=== PATIENT | female | born 2000 | race Caucasian/White ===

== ENCOUNTER 2022-01-11 08:55 | Outpatient (REF) | payer OTHER, SELFPAY ==
[2022-01-11 11:43] LABS: MANUAL DIFF FLAG NO
[2022-01-11 11:53] LABS: Basophils Absolute Auto 0.1 X10*3/uL (0.0-0.2); Basophils Percent Auto 0.7 % (0-2); Eosinophils Absolute Auto 0.2 X10*3/uL (0.0-0.4); Eosinophils Percent Auto 3.3 % (0-4); Hematocrit 43.5 % (37.0-47.0); Hemoglobin 14.2 g/dl (12.0-16.0); Imm Gran Abs Auto 0.02 X10*3/uL (0.00-0.03); Imm Gran Pct Auto 0.3 % (0.0-0.4); Lymphocytes Absolute Auto 1.2 X10*3/uL (1.2-4.9); Lymphocytes Percent Auto 17.5 % (20-40); Mean Corpuscular HGB Conc 32.6 g/dl (31.0-35.0); Mean Corpuscular Hemoglobin 28.6 pg (27.0-33.0); Mean Corpuscular Volume 87.5 fL (80.0-98.0); Mean Platelet Volume 10.3 fL (9.4-12.3); Monocytes Absolute Auto 0.6 X10*3/uL (0.1-1.2); Monocytes Percent Auto 7.8 % (2-11); Neutrophils Absolute Auto 4.9 x10*3/uL (2.0-8.3); Neutrophils Percent Auto 70.4 % (45-73); Platelet Count 275 X10*3/uL (160-400); Red Blood Count 4.97 X10*6/uL (4.20-5.50); Red Cell Distribution Width 12.7 % (11.0-16.0)
[2022-01-11 12:14] LABS: Alanine Aminotransferase 57 U/L (0-31); Anion Gap 13 (12-20); Aspartate Amino Transferase 34 U/L (5-31); Blood Urea Nitrogen 8 mg/dL (9-16); Calcium 9.7 mg/dL (8.4-10.2); Carbon Dioxide 25 mmol/L (22-29); Chloride 104 mmol/L (96-108); Cholesterol 158 mg/dL; Estimated Glomerular Filt Rate > 60; Glucose Fasting 108 mg/dL (60-99); HDL Cholesterol 37 mg/dL; Iron 115 mcg/dL (30-160); LDL Cholesterol Calculated 93 mg/dl; Percent Iron Saturation 32 % (15-50); Potassium 4.4 mmol/L (3.3-5.1); Sodium 138 mmol/L (135-145); Total Iron Binding Capacity 363 mcg/dL (228-428); Triglycerides 140 mg/dL; Unsaturated Iron Binding 248 ug/dL
[2022-01-11 12:23] LABS: TSH reflex Free T4 1.75 uIU/mL (0.32-4.0); Vitamin D 25-OH Total 21.9 ng/mL (>30)
== END 2022-01-11 08:56 | disposition home or self-care (01) ==
LOC: HO.HMGCLDS 08:55
PROVIDERS: PCP Internal Medicine; Visit Provider Internal Medicine
DX: E66.01 Morbid (severe) obesity due to excess calories (principal); D50.0 Iron deficiency anemia secondary to blood loss (chronic); Z87.42 Personal history of other diseases of the female genital tract; Z68.41 Body mass index [BMI] 40.0-44.9, adult
CPT/HCPCS: 36415; 80048; 80061; 82306; 83540; 84443; 84450; 84460; 85025

== ENCOUNTER → 2022-10-04 15:23 | Outpatient (BNVA) | payer OTHER, SELFPAY | PROVIDERS: PCP Internal Medicine; Visit Provider Physician Assistant Surgical | DX: Z13.89 Encounter for screening for other disorder (principal) ==

== ENCOUNTER → 2022-10-11 08:05 | Outpatient (BNVA) | payer OTHER, SELFPAY | PROVIDERS: PCP Internal Medicine; Visit Provider Surgery | DX: Z13.89 Encounter for screening for other disorder (principal) ==

== ENCOUNTER 2022-10-14 09:40 | Outpatient (REF) | payer OTHER, SELFPAY ==
--- NOTE | ~2022-10-14 | XR_ITS ---
EXAMINATION: XR CHEST CLINICAL INFORMATION: 22-year-old female patient with morbid obesity. COMPARISON: None TECHNIQUE: PA and lateral erect views of the chest. FINDINGS: The cardiovascular, mediastinal, and hilar structures are normal. The lungs are symmetrically aerated and clear showing no evidence of acute pulmonary parenchymal or pleural disease. XR/XR chest 2V IMPRESSION: No acute cardiopulmonary disease.
[2022-10-14 09:55] LABS: MANUAL DIFF FLAG NO
[2022-10-14 10:21] LABS: Basophils Absolute Auto 0.1 X10*3/uL (0.0-0.2); Basophils Percent Auto 1.2 % (0-2); Eosinophils Absolute Auto 0.2 X10*3/uL (0.0-0.4); Eosinophils Percent Auto 2.6 % (0-4); Hematocrit 44.9 % (37.0-47.0); Hemoglobin 14.5 g/dl (12.0-16.0); Imm Gran Abs Auto 0.03 X10*3/uL (0.00-0.03); Imm Gran Pct Auto 0.5 % (0.0-0.4); Lymphocytes Absolute Auto 1.8 X10*3/uL (1.2-4.9); Lymphocytes Percent Auto 26.4 % (20-40); Mean Corpuscular HGB Conc 32.3 g/dl (31.0-35.0); Mean Corpuscular Hemoglobin 27.8 pg (27.0-33.0); Mean Platelet Volume 9.9 fL (9.4-12.3); Monocytes Absolute Auto 0.4 X10*3/uL (0.1-1.2); Neutrophils Absolute Auto 4.2 x10*3/uL (2.0-8.3); Neutrophils Percent Auto 63.3 % (45-73); Platelet Count 289 X10*3/uL (160-400); Red Blood Count 5.22 X10*6/uL (4.20-5.50); Red Cell Distribution Width 12.6 % (11.0-16.0); White Blood Count 6.7 X10*3/uL (4.8-10.8)
[2022-10-14 10:26] LABS: Estimated Average Glucose 103 mg/dL; Hemoglobin A1c % 5.2 %
[2022-10-14 10:46] LABS: Alanine Aminotransferase 28 U/L (0-31); Albumin Level 4.4 g/dL (3.5-5.0); Alkaline Phosphatase 81 U/L (39-117); Anion Gap 13 (12-20); Aspartate Amino Transferase 22 U/L (5-31); Bilirubin Total 0.7 mg/dL (0.0-1.0); Blood Urea Nitrogen 13 mg/dL (9-16); C Reactive Protein 0.66 mg/dL (< or = 0.50); Calcium 9.7 mg/dL (8.4-10.2); Carbon Dioxide 27 mmol/L (22-29); Chloride 103 mmol/L (96-108); Cholesterol 185 mg/dL; Estimated Glomerular Filt Rate > 60; Glucose Random 88 mg/dL (60-115); HDL Cholesterol 38 mg/dL; Iron 139 mcg/dL (30-160); LDL Cholesterol Calculated 127 mg/dl; Percent Iron Saturation 41 % (15-50); Potassium 4.4 mmol/L (3.3-5.1); Sodium 139 mmol/L (135-145); Total Iron Binding Capacity 340 mcg/dL (228-428); Total Protein 7.7 g/dL (6.5-8.0); Triglycerides 100 mg/dL; Unsaturated Iron Binding 201 ug/dL
[2022-10-14 11:19] LABS: Ferritin 72 ng/mL (10-122); Insulin 27 uU/mL (2-29); TSH reflex Free T4 1.68 uIU/mL (0.32-4.0); Vitamin B12 428 pg/mL (200-900); Vitamin D 25-OH Total 23.1 ng/mL (>30)
[2022-10-18 00:43] LABS: Zinc 81 mcg/dL (60-130)
[2022-10-19 05:14] LABS: Vitamin A 43 mcg/dL (38-98)
[2022-10-19 13:13] LABS: Calcium (PTHI) 9.7 mg/dL (8.6-10.2); PTHI 55 pg/mL (16-77)
[2022-10-21 05:18] LABS: Vitamin B1 7 nmol/L (8-30)
== END 2022-10-14 09:41 | disposition home or self-care (01) ==
LOC: HO.XRAY 09:40
PROVIDERS: PCP Nurse Practitioner Family; Visit Provider Surgery
DX: E28.2 Polycystic ovarian syndrome (principal); E66.01 Morbid (severe) obesity due to excess calories; K21.9 Gastro-esophageal reflux disease without esophagitis
CPT/HCPCS: 36415; 71046; 80053; 80061; 82306; 82607; 82728; 82746; 83036; 83525; 83540; 83970; 84425; 84443; 84590; 84630; 85025; 86140

== ENCOUNTER → 2022-10-16 07:09 | Outpatient (REF) | payer OTHER, SELFPAY ==
--- NOTE | 2022-10-16 07:16 | ECG_ITS ---
Test Reason : e66.01 Blood Pressure : / mmHG Vent. Rate : 063 BPM Atrial Rate : 063 BPM P-R Int : 164 ms QRS Dur : 100 ms QT Int : 400 ms P-R-T Axes : 009 045 016 degrees QTc Int : 409 ms Normal sinus rhythm Normal ECG No previous ECGs available Referred By: Morteza Zarate Electronically Signed By:Yuniel John
== END ==
LOC: HO.CARD 07:09
PROVIDERS: PCP Nurse Practitioner Family; Visit Provider Surgery
DX: K21.9 Gastro-esophageal reflux disease without esophagitis (principal); E28.2 Polycystic ovarian syndrome; E66.01 Morbid (severe) obesity due to excess calories
CPT/HCPCS: 93005

== ENCOUNTER 2022-10-27 07:54 | Outpatient (REF) | payer OTHER, SELFPAY ==
[2022-10-30 13:03] LABS: H Pylori Breath Test Negative (Negative)
== END 2022-10-27 07:55 | disposition home or self-care (01) ==
LOC: HO.LNP 07:54
PROVIDERS: Surgery; PCP Nurse Practitioner Family; Referring Provider Nurse Practitioner Family; Visit Provider Physician Assistant Surgical
DX: E66.01 Morbid (severe) obesity due to excess calories (principal); E28.2 Polycystic ovarian syndrome; K21.9 Gastro-esophageal reflux disease without esophagitis
CPT/HCPCS: 83013; 99211

== ENCOUNTER → 2022-11-02 13:00 | Outpatient (BNVA) | payer OTHER, SELFPAY | PROVIDERS: PCP Nurse Practitioner Family; Visit Provider Counselor Mental Health ==

== ENCOUNTER → 2022-11-03 13:12 | Outpatient (BNVA) | payer OTHER, SELFPAY | PROVIDERS: PCP Nurse Practitioner Family; Visit Provider Dietitian, Registered | DX: E66.9 Obesity, unspecified (principal); Z68.38 Body mass index [BMI] 38.0-38.9, adult | CPT/HCPCS: 97802 ==

== ENCOUNTER → 2022-11-06 08:06 | Outpatient (BNVA) | payer OTHER, SELFPAY | PROVIDERS: PCP Internal Medicine; Visit Provider Surgery ==

== ENCOUNTER → 2022-11-15 10:54 | Outpatient (BNVA) | payer OTHER, SELFPAY | PROVIDERS: PCP Internal Medicine; Visit Provider Surgery ==

== ENCOUNTER → 2022-11-17 12:45 | Outpatient (BNVA) | payer OTHER, SELFPAY | PROVIDERS: PCP Nurse Practitioner Family; Visit Provider Surgery ==

== ENCOUNTER 2022-11-21 08:59 | Outpatient (REF) | payer OTHER, SELFPAY ==
--- NOTE | ~2022-11-21 | US_ITS ---
EXAMINATION: US COMPLETE ABDOMEN WITH LIVER ELASTOGRAPHY CLINICAL INFORMATION: Obesity COMPARISON: None available. TECHNIQUE: Real-time imaging of the abdominal viscera. Noninvasive ultrasound liver fibrosis assessment is performed using Ritchie ElastPQ point quantification shear wave elastography (2D-SWE) with a C5-2 MHz transducer. Multiple elastography samples are obtained. FINDINGS: PANCREAS: Not well visualized due to bowel gas. ABDOMINAL AORTA: The proximal, middle, and distal aortic segments are normal in caliber. INFERIOR VENA CAVA: Visualized portions are normal. LIVER: Liver echotexture is increased. Probably represents fatty infiltration. There is a hypoechoic area adjacent to the gallbladder, characteristic location of focal fatty sparing. The liver is normal in size and contour.. No focal lesion or intrahepatic biliary duct dilatation. The right lobe measures 17 cm in length. The left lobe measures 12 cm in length. Portal flow is normal/hepatopedal Shear wave liver elastography median stiffness is 1.6 m/s (reference: normal median stiffness is 1.3 m/s or less). IQR/median stiffness to assess sampling precision is 0.06 (reference: good quality data set is IQR/median stiffness of 0.15 or less). GALLBLADDER: The 2 small gallbladder wall polyps largest measuring 8 x 5 x 8 mm. No gallstones. COMMON BILE DUCT: Normal in caliber measuring 0.3 cm in diameter. RIGHT KIDNEY: Normal. No hydronephrosis. No renal calculi or focal parenchymal lesions. The kidney measures 12 cm in maximum dimension. LEFT KIDNEY: Normal. No hydronephrosis. No renal calculi or focal parenchymal lesions. The kidney measures 12 cm in maximum dimension. SPLEEN: Normal. The spleen measures 12 cm in maximum dimension. FREE FLUID: None. US/US abdomen comp w elastography IMPRESSION: 1. Impression: Echogenic liver suggestive of fatty infiltration. Gallbladder wall polyps, largest measuring 8 x 5 x 8 mm. Six-month ultrasound follow-up recommended. 2. Liver elastography: Adequate liver sampling. In the absence of other known clinical signs, rules out compensated advanced chronic liver disease. REFERENCE: Society of Radiologists in Ultrasound Liver Stiffness Thresholds (2020): LIVER STIFFNESS THRESHOLDS: *Liver Stiffness equal or less than 1.3 m/s: High probability of being normal. *Liver Stiffness less than 1.7 m/s: In the absence of other known clinical signs, rules out compensated advanced chronic liver disease. *Liver Stiffness 1.7-2.1 m/s: Suggestive of compensated advanced chronic liver disease but need further test for confirmation. *Liver Stiffness over 2.1 m/s: Rules in compensated advanced chronic liver disease. *Liver Stiffness over 2.4 m/s: Suggestive of clinically significant portal hypertension. QUALITY OF DATA SET: *IQR/Median value equal or less than 0.15 implies a quality data set. *IQR/Median value over 0.15 implies a poor quality data set. SIGNIFICANT CHANGE FROM PRIOR EXAM: Significant change if liver stiffness measurement is 10% or greater from prior exam. OTHER CONSIDERATIONS: The stage of liver fibrosis may be overestimated in the setting of acute hepatitis, liver inflammation, elevated liver function tests, hepatic vascular congestion, obstructive cholestasis, non-fasting state, and infiltrative diseases such as amyloidosis and lymphoma. In some patients with NAFLD, the liver stiffness thresholds for compensated advanced chronic liver disease may be lower. In causes other than viral hepatitis and NAFLD, liver stiffness thresholds are not well established.
--- NOTE | ~2022-11-21 | FL_ITS ---
EXAMINATION: XR FLUOROSCOPY UPPER GI WITH AIR CLINICAL INFORMATION: Morbid/severe obesity due to excess calories. COMPARISON: None available. TECHNIQUE: Technique routine upper GI air-contrast study in upright and lying position. FINDINGS: Following oral administration of thick barium and effervescent granules in upright view there is normal propagation bolus from the oral cavity through the pharynx, esophagus into stomach without any evidence of obstruction, narrowing or stricture. On placing patient supine and prone lying the course, caliber and peristalsis of stomach, duodenal bulb and the sweep is normal. The mucosal pattern of the stomach and the duodenal bulb and the sweep is normal. There is a large gastroesophageal the sellar reflux without hiatal hernia. FLUOROSCOPY TIME: 1.3 minutes DOSE AREA PRODUCT: 42.136 uGy-m2 (microgray-meter squared) FL/FL upper GI w air IMPRESSION: Large gastroesophageal reflux without hiatal hernia. Rest of the upper GI exam is unremarkable.
== END 2022-11-21 09:00 | disposition home or self-care (01) ==
LOC: HO.US 08:59
PROVIDERS: PCP Nurse Practitioner Family; Visit Provider Surgery
DX: Z01.818 Encounter for other preprocedural examination (principal); E66.01 Morbid (severe) obesity due to excess calories; K21.9 Gastro-esophageal reflux disease without esophagitis; E28.2 Polycystic ovarian syndrome
CPT/HCPCS: 74246; 76705; 76981

== ENCOUNTER 2022-11-23 06:07 | Inpatient (IN) | payer OTHER, SELFPAY ==
[2022-11-16 11:20] VITALS: BMI 37.4
[2022-11-17 10:28] LABS: MANUAL DIFF FLAG NO
[2022-11-17 12:01] LABS: Prothrombin Time 11.3 SEC (10.0-13.1)
[2022-11-17 12:04] LABS: Basophils Absolute Auto 0.1 X10*3/uL (0.0-0.2); Basophils Percent Auto 1.2 % (0-2); Eosinophils Absolute Auto 0.2 X10*3/uL (0.0-0.4); Hematocrit 40.5 % (37.0-47.0); Hemoglobin 13.4 g/dl (12.0-16.0); Imm Gran Abs Auto 0.01 X10*3/uL (0.00-0.03); Imm Gran Pct Auto 0.2 % (0.0-0.4); Lymphocytes Absolute Auto 1.6 X10*3/uL (1.2-4.9); Lymphocytes Percent Auto 27.4 % (20-40); Mean Corpuscular HGB Conc 33.1 g/dl (31.0-35.0); Mean Corpuscular Hemoglobin 28.7 pg (27.0-33.0); Mean Corpuscular Volume 86.7 fL (80.0-98.0); Mean Platelet Volume 10.4 fL (9.4-12.3); Monocytes Absolute Auto 0.4 X10*3/uL (0.1-1.2); Monocytes Percent Auto 6.9 % (2-11); Neutrophils Absolute Auto 3.5 x10*3/uL (2.0-8.3); Neutrophils Percent Auto 61.3 % (45-73); Partial Thromboplastin Time 28.8 SEC (26.0-36.4); Platelet Count 271 X10*3/uL (160-400); Red Blood Count 4.67 X10*6/uL (4.20-5.50); Red Cell Distribution Width 13.2 % (11.0-16.0); White Blood Count 5.8 X10*3/uL (4.8-10.8)
[2022-11-17 12:30] LABS: Estimated Average Glucose 94 mg/dL; Hemoglobin A1c % 4.9 %
[2022-11-17 14:02] LABS: Alanine Aminotransferase 45 U/L (0-31); Albumin Level 4.3 g/dL (3.5-5.0); Alkaline Phosphatase 62 U/L (39-117); Anion Gap 11 (12-20); Aspartate Amino Transferase 27 U/L (5-31); Bilirubin Total 0.5 mg/dL (0.0-1.0); Blood Urea Nitrogen 10 mg/dL (9-16); C Reactive Protein 0.24 mg/dL (< or = 0.50); Calcium 9.2 mg/dL (8.4-10.2); Carbon Dioxide 24 mmol/L (22-29); Chloride 109 mmol/L (96-108); Cholesterol 140 mg/dL; Creatinine Clr Calc Pharmacy 161.8; Estimated Glomerular Filt Rate > 60; Glucose Random 89 mg/dL (60-115); HDL Cholesterol 36 mg/dL; LDL Cholesterol Calculated 90 mg/dl; Potassium 4.1 mmol/L (3.3-5.1); Sodium 140 mmol/L (135-145); Total Protein 7.1 g/dL (6.5-8.0); Triglycerides 73 mg/dL
[2022-11-17 14:12] LABS: TSH reflex Free T4 1.42 uIU/mL (0.32-4.0)
[2022-11-17 14:51] LABS: Insulin 25 uU/mL (2-29)
--- NOTE | 2022-11-19 23:03 | P.HPSUR_ITS ---
Pre-Procedural Eval Section A Date of Service: 11/19/22 The patient is an INPATIENT: Yes The History & Physical has been completed within 30 days and I have reviewed it.: Yes Section B Chief Complaint: Obesity, unspecified Relevant Family History (Specify if Yes): No Relevant Social History: None Present Medications: None Medical History: No relevant PMH History of Previous Operations: No relevant previous surgery Allergies: Allergies Allergy/AdvReac Type Severity Reaction Status Date / Time No Known Allergies Allergy Verified 11/15/22 11:47 [No Known Allergies*] Review of Systems Sugical H&P ROS: Negative: Constitution, Cardiovascular, Respiratory, Neurological, Psychiatric, Hem-Onc, Allergic/Immunologic, Gastrointestinal, Genitourinary, Musculoskeletal, Integumentary, Endocrine and Eyes/Ears/ Nose/Throat Exam Surgical H&P Exam: Normal: HEENT, Normal: Heart, Normal: Lungs, Normal: Extremities, Normal: Abdomen, Normal: Skin and Normal: Neurological Plan Diagnosis/Plan: Unchanged I have reviewed the history and physical and performed a pertinent physical examination on my patient. No changes have occurred unless specified. Time Spent With Patient Time: Total time managing care of this patient today ____ minutes.
--- NOTE | 2022-11-22 10:00 | P.CONAN_ITS ---
HPI - Anesthesia Eval Consult details Narrative: 22yo F for Gastrectomy SleeveEGD,possible diaphragmatic hernia,possible ventral hernia,possible open PMFSH Active Problems Active Problems: All Active Problems (Updated 11/15/22 @ 11:44 by Morteza Zarate MD) BMI 37.0-37.9, adult (Acute) BMI 38.0-38.9,adult (Acute) Obesity (Acute) Vitamin B1 deficiency (Acute) Vitamin B12 deficiency (Acute) Nephrolithiasis (Acute) PCOS (polycystic ovarian syndrome) (Acute) GERD (gastroesophageal reflux disease) (Acute) Morbid obesity (Acute) Elevated liver enzymes (Acute) Impaired fasting glucose (Acute) Vitamin D deficiency (Acute) Anxiety and depression (Acute) Morbid obesity with BMI of 40.0-44.9, adult (Acute) History of irregular menstrual bleeding (Acute) Past Medical History Medical History Anxiety and depression BMI 37.0-37.9, adult Folliculitis Fracture of distal end of right fibula GERD (gastroesophageal reflux disease) History of irregular menstrual bleeding Lumbago without sciatica Morbid obesity Morbid obesity with BMI of 40.0-44.9, adult Nephrolithiasis PCOS (polycystic ovarian syndrome) Family History Family History Mother Asthma Diabetes mellitus Maternal Grandmother Diabetes mellitus Pancreatic cancer Father No problems noted. Sister PCOS (polycystic ovarian syndrome) Sister No problems noted. Paternal Uncle No problems noted. Maternal Uncle Mental health disorder Surgical History Surgical History History of root canal procedure Hx of wisdom tooth extraction S/P ORIF (open reduction internal fixation) fracture Social History Social History Household Members: Family Household Members Other:: Parents Housing: Apartment Are you a primary associate director career services to a significant other at home: No Do you presently have visiting nurse or other home services: No Alcohol intake: current Alcohol intake frequency: holidays/special occasions only Patient Tobacco Use Status: Never used Tobacco e-Cigarette/Vaping Use: Never Used service: No Current occupational status: employed Cognitive needs: No Hearing needs: No Vision needs: No Meds Allergies Allergy/AdvReac Type Severity Reaction Status Date / Time No Known Allergies Allergy Verified 11/28/22 13:44 [No Known Allergies*] Exam Exam Date and Time: November 22, 2022 1000 Height,Weight and Vital Signs: Height 5 ft 7 in Weight 108.409 kg Pertinent Lab Results Pertinent Lab Results: Laboratory Tests 11/17/22 11/17/22 11/17/22 10:25 10:27 10:27 WBC 5.8 RBC 4.67 Hgb 13.4 Hct 40.5 MCV 86.7 MCH 28.7 MCHC 33.1 RDW 13.2 Plt Count 271 MPV 10.4 Immature Gran % (Auto) 0.2 Neut % (Auto) 61.3 Lymph % (Auto) 27.4 [place] % (Auto) 6.9 Eos % (Auto) 3.0 Baso % (Auto) 1.2 Lymph # (Auto) 1.6 [place] # (Auto) 0.4 Eos # (Auto) 0.2 Baso # (Auto) 0.1 Abs Immat Gran (auto) 0.01 Absolute Neuts (auto) 3.5 Absolute Nucleated RBC 0.000 Nucleated RBC % (auto) 0.0 PT 11.3 INR 1.0 APTT 28.8 Sodium Potassium Chloride Carbon Dioxide Anion Gap BUN Creatinine Estim Creat Clear Calc Estimated GFR Random Glucose Estimat Average Glucose Hemoglobin A1c % Insulin Level Calcium Total Bilirubin AST ALT Alkaline Phosphatase C-Reactive Protein Total Protein Albumin Triglycerides Cholesterol LDL Cholesterol, Calc HDL Cholesterol TSH Blood Type A Negative Antibody Screen NEGATIVE 11/17/22 11/17/22 10:27 10:27 WBC RBC Hgb Hct MCV MCH MCHC RDW Plt Count MPV Immature Gran % (Auto) Neut % (Auto) Lymph % (Auto) [place] % (Auto) Eos % (Auto) Baso % (Auto) Lymph # (Auto) [place] # (Auto) Eos # (Auto) Baso # (Auto) Abs Immat Gran (auto) Absolute Neuts (auto) Absolute Nucleated RBC Nucleated RBC % (auto) PT INR APTT Sodium 140 Potassium 4.1 Chloride 109 H Carbon Dioxide 24 Anion Gap 11 L BUN 10 Creatinine 0.68 Estim Creat Clear Calc 161.8 Estimated GFR > 60 Random Glucose 89 Estimat Average Glucose 94 Hemoglobin A1c % 4.9 Insulin Level 25 Calcium 9.2 Total Bilirubin 0.5 AST 27 ALT 45 H Alkaline Phosphatase 62 C-Reactive Protein 0.24 Total Protein 7.1 Albumin 4.3 Triglycerides 73 Cholesterol 140 LDL Cholesterol, Calc 90 HDL Cholesterol 36 TSH 1.42 Blood Type Antibody Screen Narrative Narrative: EKG 10/2022 Vent. Rate : 063 BPM ? ? Atrial Rate : 063 BPM ?? P-R Int : 164 ms? QRS Dur : 100 ms ? ? QT Int : 400 ms ? ? ? P-R-T Axes : 009 045 016 degrees ?? QTc Int : 409 ms ? Normal sinus rhythm Normal ECG No previous ECGs available Assessment and Plan Assessment Anesthesia Assessment: Chart Reviewed
[2022-11-22 15:11] LABS: COVID-19 Test Negative (Negative); IDNOW Serial# 9DB6401D
[2022-11-23] VITALS (11 sets, daily range): BP systolic 126–153; BP diastolic 57–73; PULSE 61–87; RESP 15–18; TEMP 36.1–36.7; O2SAT 95–98
--- OUTSIDE RECORDS SUMMARY | 2022-11-23 06:10 | XMS_ITS | Continuity of Care Document ---
Author Name Unknown Organization [facility] Address [address] [place] [address]- Care Team Providers Care Service Counter Cashier Name Role Phone Lee VIEYRA, Dora Figueroa Primary Care Physician Encounter [facility] Date(s): 04/15/21 - 05/15/[address] [address] Attending Physician: Rojelio [place] Admitting Physician: Rojelio [place] Referring Physician: Rojelio [place] Allergies, Adverse Reactions, Alerts Substance Reaction Severity Status NKA Active Problem List Condition Effective Dates Status Health Status Inform ant Nephrolithiasis(Confirmed) Active Menorrhagia(Confirmed) Active Uses oral contraception(Confirmed) Active PCOS (polycystic ovarian syndrome)(Confirmed) Active Nexplanon in place(Confirmed) Active Social History Social History Type Response Smoking Status Never (less than 100 in lifetime) entered on: 01/10/20 Sex
--- OUTSIDE RECORDS SUMMARY | 2022-11-23 06:10 | XMS_ITS | Continuity of Care Document ---
Author Name Unknown Organization [facility] Address [address] [place] [address]- Care Team Providers Care Retail Pharmacy Merchandiser Name Role Phone Lee VIEYRA, Dora Figueroa Primary Care Physician Encounter [facility] Date(s): 03/08/20 - 04/15/20 [facility] [address] [address]- [facility] Attending Physician: Not on Staff, Attending MD Allergies, Adverse Reactions, Alerts Substance Reaction Severity Status NKA Active Problem List Condition Effective Dates Status Health Status Inform ant Nephrolithiasis(Confirmed) Active Menorrhagia(Confirmed) Active Uses oral contraception(Confirmed) Active PCOS (polycystic ovarian syndrome)(Confirmed) Active Nexplanon in place(Confirmed) Active Social History Social History Type Response Smoking Status Never (less than 100 in lifetime) entered on: 01/10/20 Sex
--- OUTSIDE RECORDS SUMMARY | 2022-11-23 06:10 | XMS_ITS | Continuity of Care Document ---
Author Name Unknown Organization [facility] Address [address] [place] [id number]- Care Team Providers Care Clinical Nursing Director Name Role Phone Lee VIEYRA, Dora Figueroa Primary Care Physician Encounter [facility] Date(s): 03/27/20 - 04/26/20 [facility] [address] [address]- [facility] Allergies, Adverse Reactions, Alerts Substance Reaction Severity Status NKA Active Problem List Condition Effective Dates Status Health Status Inform ant Nephrolithiasis(Confirmed) Active Menorrhagia(Confirmed) Active Uses oral contraception(Confirmed) Active PCOS (polycystic ovarian syndrome)(Confirmed) Active Nexplanon in place(Confirmed) Active Social History Social History Type Response Smoking Status Never (less than 100 in lifetime) entered on: 01/10/20 Sex
--- OUTSIDE RECORDS SUMMARY | 2022-11-23 06:10 | XMS_ITS | Continuity of Care Document ---
Author Name Unknown Organization [facility] Address [address] [place] [address]- Care Team Providers Care Quality Consultant Name Role Phone Lee VIEYRA, Dora Figueroa Primary Care Physician Encounter [facility] Date(s): 05/29/22 - 07/05/[address] [address]- Attending Physician: Not on Staff, Attending MD Allergies, Adverse Reactions, Alerts No Known Allergies Medications Nexplanon 68 mg subcutaneous implant 1 each = 68 mg, Subcutaneous Infusion, Once, 0 Refills, Maintenance, 03/29/22 14:19:00 EDT, Partialfill upon patient request if the prescription is for a schedule II opioid drug. Start Date: 03/29/22 Status: Ordered Vitamin D 70820 iu oral capsule 1, capsule, By Mouth, Every week, # 30 capsule, Refills 0, Maintenance, 03/29/22 14:18:00 EDT, Partial fill upon patient request if the prescription is for a schedule II opioid drug. Start Date: 03/29/22 Status: Ordered Problem List Condition Confirmation Course Effective Dates Status H ealth Status Informant Nephrolithiasis Confirmed Active Menorrhagia Confirmed Active PCOS (polycystic ovarian syndrome) Confirmed Active Severe obesity Confirmed Active Nexplanon in place Confirmed Active Social History Social History Type Response Smoking Status Never (less than 100 in lifetime) entered on: 01/10/20 Sex Patient Care team information Care Team Personnel Name: Dora Howard MD Position: Reference Physician Member Role: PCP Address: Address: [address] [place] [address]- Care Team Related Persons Name: MAINE BUCHANAN Address: home [address] [place] [address]
--- OUTSIDE RECORDS SUMMARY | 2022-11-23 06:10 | XMS_ITS | Continuity of Care Document ---
Author Name Unknown Organization [facility] Address [address] [place] [address]- Care Team Providers Care Form Coverer Name Role Phone Lee VIEYRA, Dora Figueroa Primary Care Physician Encounter [facility] Date(s): 05/29/22 - 06/28/[address] [address]- Allergies, Adverse Reactions, Alerts No Known Allergies Medications Nexplanon 68 mg subcutaneous implant 1 each = 68 mg, Subcutaneous Infusion, Once, 0 Refills, Maintenance, 03/29/22 14:19:00 EDT, Partialfill upon patient request if the prescription is for a schedule II opioid drug. Start Date: 03/29/22 Status: Ordered Vitamin D 05507 iu oral capsule 1, capsule, By Mouth, [...] Physician Member Role: PCP Address: Address: [address] [place] [address]- Care Team Related Persons Name: MAINE BUCHANAN Address: home [address] [place] [address]
--- OUTSIDE RECORDS SUMMARY | 2022-11-23 06:10 | XMS_ITS | Continuity of Care Document ---
Author Name Unknown Organization [facility] Address [address] [place] [address]- Care Team Providers Care Harvest Field Ticketer Name Role Phone Lee VIEYRA, Dora Figueroa Primary Care Physician Encounter [facility] Date(s): 04/07/20 - 05/07/20 [facility] [address] [address]- [facility] Allergies, Adverse Reactions, Alerts Substance [...]
--- OUTSIDE RECORDS SUMMARY | 2022-11-23 06:10 | XMS_ITS | Continuity of Care Document ---
Author Name Unknown Organization [facility] Address [address] [place] [address]- Care Team Providers Care Credit Risk Analyst Name Role Phone Eleanor VIEYRA, Yifan Coto Primary Care Physician Encounter [facility] [id number] Date(s): 12/27/19 - 12/27/[address] [address]- [facility] Encounter Diagnosis Vaginal bleeding(Final) - 12/27/19 Discharge Disposition: A-D/C Home Attending Physician: Goodman VIEYRA, Hunter Tompkins Admitting Physician: Hunter Cotto MD Referring Physician: Not on Staff, Referring MD Allergies, Adverse Reactions, Alerts Substance Reaction Severity Status NKA Active Medications Apri 0.15 mg-0.03 mg oral tablet 1 tablet, By Mouth, Daily, # 28 tablet, 0 Refills, Maintenance, 12/27/19 9:49:00 EDT, Tablet, [id number], 1 tablet By Mouth Daily Start Date: 12/27/19 Status: Ordered Vital Signs Most recent to oldest [Reference Range]: 1 2 3 Oxygen Saturation [94-100 %] 97 % (12/27/19 10:12 AM) 98 % (12/27/19 8:34 AM) 99 % (12/27/19 6:47 AM) Pulse Rate [55-90 bpm] 84 bpm (12/27/19 10:12 AM) 87 bpm (12/27/19 8:34 AM) Blood Pressure [90-138/55-84 mm Hg] 134/64mm Hg (12/27/19 10:12 AM) 122/64mm Hg (12/27/19 8:34 AM) Respiratory Rate [16-30 br/min] 16 br/min (12/27/19 10:12 AM) 18 br/min (12/27/19 8:34 AM) Temperature [96.8-100.4 DegF] 98.0 DegF (12/27/19 8:34 AM) 97.9 DegF (12/27/19 6:47 AM) Mode of Delivery (Oxygen) Room air (12/27/19 10:12 AM) Room air (12/27/19 8:34 AM) Room air (12/27/19 6:47 AM) Blood pressure sites Arm, left (12/27/19 10:12 AM) Arm, left (12/27/19 8:34 AM) Temperature Route Oral (12/27/19 8:34 AM) Oral (12/27/19 6:47 AM)
--- OUTSIDE RECORDS SUMMARY | 2022-11-23 06:10 | XMS_ITS | Continuity of Care Document ---
Author Name Unknown Organization [facility] Address [address] [place] [address]- Care Team Providers Care Channel Cementer Name Role Phone Lee VIEYRA, Dora Figueroa Primary Care Physician Encounter [facility] Date(s): 07/26/20 - 08/25/20 [facility] [address] [address] Attending Physician: Rojelio [place] Admitting Physician: Rojelio [place] Referring Physician: AdmtrRojelio Allergies, Adverse Reactions, Alerts Substance Reaction Severity Status NKA Active Problem List Condition Effective Dates Status Health Status Inform ant Nephrolithiasis(Confirmed) Active Menorrhagia(Confirmed) Active Uses oral contraception(Confirmed) Active PCOS (polycystic ovarian syndrome)(Confirmed) Active Nexplanon in place(Confirmed) Active Social History Social History Type Response Smoking Status Never (less than 100 in lifetime) entered on: 01/10/20 Sex
--- OUTSIDE RECORDS SUMMARY | 2022-11-23 06:10 | XMS_ITS | Continuity of Care Document ---
Author Name Unknown Organization [facility] Address [address] [place] [address]- Care Team Providers Care Vat Tender Name Role Phone Britni Hilario NP Primary Care Physician Encounter [facility] Date(s): 10/16/22 - 11/22/[address] [address]- Attending Physician: Not on Staff, Attending MD Allergies, Adverse Reactions, Alerts No Known Allergies Medications Vitamin D 47056 iu oral capsule 1, capsule, By Mouth, Every week, # 30 capsule, Refills 0, Maintenance, 03/29/22 14:18:00 EDT, Partial fill upon patient request if the prescription is for a schedule II opioid drug. Start Date: 03/29/22 Status: Ordered Problem List Condition Confirmation Course Effective Dates Status H ealth Status Informant Nephrolithiasis Confirmed Active Obese class II Confirmed Active PCOS (polycystic ovarian syndrome) Confirmed Active Social History Social History Type Response Smoking Status Never (less than 100 in lifetime) entered on: 01/10/20 Sex Patient Care team information Care Team Personnel Name: Britni Hilario NP Position: Reference Physician Member Role: PCP Address: Address: [address] [place] [address]- Care Team Related Persons Name: MAINE BUCHANAN Address: home [address] [place] [address]
--- OUTSIDE RECORDS SUMMARY | 2022-11-23 06:10 | XMS_ITS | Continuity of Care Document ---
Author Name Unknown Organization [facility] ter Address [address] [place] [phone]- Care Team Providers Care Bung Dropper Name Role Phone Lee VIEYRA, Dora Figueroa Primary Care Physician Encounter [facility] [place] Date(s): 01/10/20 - 01/11/[address] [address]- [facility] Encounter Diagnosis Nephrolithiasis(Final) - 01/10/20 Discharge Disposition: A-D/C Home Attending Physician: Mickey Liang MD Admitting Physician: Mickey Liang MD Referring Physician: Not on Staff, Referring MD Allergies, Adverse Reactions, Alerts Substance Reaction Severity Status NKA Active Medications acetaminophen 325 mg oral tablet 650 mg, 2, tablet, By Mouth, Every 6 hours, PRN, for 7 days, # 12 tablet, Refills 0, Tot. Refills 0, Acute 01/18/20 14:28:00 EDT, Pain , Mild Temperature, 01/11/20 14:28:00 EDT, Route to Pharmacy Electronically, [facility], 170, cm, 06... Start Date: 01/11/20 Stop Date: 01/18/20 Status: Ordered Apri 0.15 mg-0.03 mg oral tablet 1 tablet, By Mouth, Daily, # 28 tablet, 0 Refills, Maintenance, 12/27/19 9:49:00 EDT, Tablet, [id number], 1 tablet By Mouth Daily Start Date: 12/27/19 Status: Ordered tamsulosin 0.4 mg oral capsule 0.4 mg, 1, capsule, By Mouth, Daily, # 7 capsule, Refills 0, Tot. Refills 0, Maintenance, 01/11/20 14:29:00 EDT, Route to Pharmacy Electronically, [facility], 170, cm, 01/11/20 12:13:00EDT, Height, 115.5, kg, 01/10/20 21:02:00 EDT, Dry... Start Date: 01/11/20 Stop Date: 01/18/20 Status: Ordered Vital Signs Most recent to oldest [Reference Range]: 1 2 3 Height 170 cm (01/11/20 12:13 PM) 170 cm (01/11/20 8:30 AM) 170 cm (01/11/20 4:29 AM) Weight 115.5 kg (01/10/20 9:02 PM) 113.9 kg (01/10/20 7:04 PM) 113.9 kg (01/10/20 4:58 PM) Oxygen Saturation [94-100 %] 99 % (01/11/20 12:13 PM) 99 % (01/11/20 8:30 AM) 100 % (01/11/20 4:29 AM) Pulse Rate [55-90 bpm] 97 bpm *H* (01/11/20 12:13 PM) 71 bpm (01/11/20 8:30 AM) 59 bpm (01/11/20 4:29 AM) Body Mass Index [18.5-24.99] 39.97 *>HHI* (01/10/20 9:02 PM) 39.41 *>HHI* (01/10/20 7:04 PM) 39.41 *>HHI* (01/10/20 4:58 PM) Blood Pressure [90-138/55-84 mm Hg] 137/84mm Hg (01/11/20 12:13 PM) 123/62mm Hg (01/11/20 8:30 AM) 113/58mm Hg (01/11/20 4:29 AM) Respiratory Rate [16-30 br/min] 18 br/min (01/11/20 12:13 PM) 16 br/min (01/11/20 10:51 AM) 18 br/min (01/11/20 8:30 AM) Temperature [96.8-100.4 DegF] 98.6 DegF (01/11/20 12:13 PM) 98.6 DegF (01/11/20 8:30 AM) 98.4 DegF (01/11/20 4:29 AM) Mode of Delivery (Oxygen) Room air (01/11/20 12:13 PM) Room air (01/11/20 8:30 AM) Room air (01/11/20 4:29 AM) Blood pressure sites Arm, left (01/11/20 12:13 PM) Arm, left (01/11/20 8:30 AM) Arm, left (01/11/20 4:29 AM) Temperature Route Oral (01/11/20 12:13 PM) Oral (01/11/20 8:30 AM) Oral (01/11/20 4:29 AM) Dry Weight 115.5 kg (01/10/20 9:02 PM) 113.9 kg (01/10/20 7:04 PM) 113.9 kg (01/10/20 4:58 PM) Weight Obtained Via Standing scale (01/10/20 9:02 PM) Standing scale (01/10/20 2:34 PM) Dry Weight Obtained Via Standing scale (01/10/20 9:02 PM) Standing scale (01/10/20 2:34 PM) Social History Social History Type Response Smoking Status Never (less than 100 in lifetime) entered on: 01/10/20 Sex
--- OUTSIDE RECORDS SUMMARY | 2022-11-23 06:10 | XMS_ITS | Continuity of Care Document ---
Author Name Unknown Organization [facility] ter Address [address] [place] [id number]- Care Team Providers Care Plush Cutter Name Role Phone Lee VIEYRA, Dora Figueroa Primary Care Physician Encounter [facility] [place] Date(s): 05/19/21 - 05/19/[address] [address] Discharge Disposition: A-D/C Home Attending Physician: Galdino Richardson MD, I Admitting Physician: Galdino Richardson MD, I Referring Physician: Galdino Richardson MD, I Allergies, Adverse Reactions, Alerts Substance Reaction Severity Status NKA Active Medications No Known Medications Problem List Condition Effective Dates Status Health Status Inform ant Nephrolithiasis(Confirmed) Active Menorrhagia(Confirmed) Active Uses oral contraception(Confirmed) Active PCOS (polycystic ovarian syndrome)(Confirmed) Active Nexplanon in place(Confirmed) Active Vital Signs Most recent to oldest [Reference Range]: 1 2 3 Height 170.1 cm (05/19/21 1:40 PM) 170.1 cm (05/12/21 4:17 PM) Weight 119.4 kg (05/19/21 1:40 PM) 116.3 kg (05/12/21 4:17 PM) Oxygen Saturation [94-100 %] 96 % (05/19/21 4:15 PM) 96 % (05/19/21 4:00 PM) 98 % (05/19/21 3:45 PM) Pulse Rate [55-90 bpm] 69 bpm (05/19/21 1:40 PM) Body Mass Index [18.5-24.99] 41.27 *>HHI* (05/19/21 1:40 PM) 40.19 *>HHI* (05/12/21 4:17 PM) Blood Pressure [90-138/55-84 mm Hg] 112/55mm Hg (05/19/21 4:15 PM) 101/53mm Hg (05/19/21 4:00 PM) 103/46mm Hg (05/19/21 3:45 PM) Respiratory Rate [16-30 br/min] 19 br/min (05/19/21 4:15 PM) 17 br/min (05/19/21 4:00 PM) 19 br/min (05/19/21 3:45 PM) Temperature [96.8-100.4 DegF] 97.3 DegF (05/19/21 3:45 PM) 96.9 DegF (05/19/21 1:40 PM) Mode of Delivery (Oxygen) Room air (05/19/21 4:15 PM) Room air (05/19/21 4:00 PM) Room air (05/19/21 3:45 PM) Blood pressure sites Arm, left (05/19/21 3:45 PM) Arm, right (05/19/21 1:40 PM) Temperature Route Temporal (05/19/21 3:45 PM) Temporal (05/19/21 1:40 PM) Dry Weight 119.4 kg (05/19/21 1:40 PM) 116.3 kg (05/12/21 4:17 PM) Weight Obtained Via Standing scale (05/19/21 1:40 PM) Patient/family stated (05/12/21 4:17 PM) Dry Weight Obtained Via Standing scale (05/19/21 1:40 PM) Patient/family stated (05/12/21 4:17 PM) Social History Social History Type Response Smoking Status Never (less than 100 in lifetime) entered on: 01/10/20 Sex
--- OUTSIDE RECORDS SUMMARY | 2022-11-23 06:10 | XMS_ITS | Continuity of Care Document ---
Author Name Unknown Organization [facility] Address [address] [place] [address]- Care Team Providers Care Inset Cutter Name Role Phone Lee VIEYRA, Dora Figueroa Primary Care Physician Encounter [facility] Date(s): 01/26/22 - 03/26/22 [facility] [address] [address] Attending Physician: Not on Staff, Attending MD Allergies, Adverse Reactions, Alerts No Known Allergies Problem List Condition Effective Dates Status Health Status Inform ant Nephrolithiasis(Confirmed) Active Menorrhagia(Confirmed) Active Uses oral contraception(Confirmed) Active PCOS (polycystic ovarian syndrome)(Confirmed) Active Nexplanon in place(Confirmed) Active Social History Social History Type Response Smoking Status Never (less than 100 in lifetime) entered on: 01/10/20 Sex
--- OUTSIDE RECORDS SUMMARY | 2022-11-23 06:10 | XMS_ITS | Continuity of Care Document ---
Author Name Unknown Organization [facility] Address [address] [place] [id number]- Care Team Providers Care Hourly Sign Language Interpreter Name Role Phone Lee VIEYRA, Dora Figueroa Primary Care Physician Encounter [facility] [place] Date(s): 04/21/22 - 07/09/[address] [address]- Attending Physician: Not on Staff, Attending MD Allergies, Adverse Reactions, Alerts No Known Allergies Medications Nexplanon 68 mg subcutaneous implant 1 each = 68 mg, Subcutaneous Infusion, Once, 0 Refills, Maintenance, 03/29/22 14:19:00 EDT, Partialfill upon patient request if the prescription is for a schedule II opioid drug. Start Date: 03/29/22 Status: Ordered Vitamin D 43956 iu oral capsule 1, capsule, By Mouth, [...] Physician Member Role: PCP Address: Address: [address] [place] [address]- Care Team Related Persons Name: MAINE BUCHANAN Address: home [address] [place] [address]
--- OUTSIDE RECORDS SUMMARY | 2022-11-23 06:10 | XMS_ITS | Continuity of Care Document ---
Author Name Unknown Organization [facility] ter Address [address] [place] [address]- Care Team Providers Care Small Boat Engineer Name Role Phone Lee VIEYRA, Dora Figueroa Primary Care Physician En[place] [facility] [place] Date(s): 01/17/21 - 01/17/[address] [address] Discharge Disposition: A-D/C Home Attending Physician: Lyle Sanchez MD Admitting Physician: Lyle Sanchez MD Referring Physician: Lyle Sanchez MD Allergies, Adverse Reactions, Alerts Substance Reaction Severity Status NKA Active Medications Percocet-5 Tablet 1 tablet, Tablet, By Mouth, Every 4 hours, in PACU ONLY, PRN for Pain , Mild, if patient can tolerate po, Routine, 01/17/21 14:48:00 EDT Start Date: 01/17/21 Stop Date: 01/24/21 Status: Ordered Problem List Condition Effective Dates Status Health Status Inform ant Nephrolithiasis(Confirmed) Active Menorrhagia(Confirmed) Active Uses oral contraception(Confirmed) Active PCOS (polycystic ovarian syndrome)(Confirmed) Active Nexplanon in place(Confirmed) Active Vital Signs Most recent to oldest [Reference Range]: 1 2 3 Height 170 cm (01/17/21 12:22 PM) Weight 116.4 kg (01/17/21 12:22 PM) Oxygen Saturation [94-100 %] 100 % (01/17/21 4:45 PM) 100 % (01/17/21 4:30 PM) 100 % (01/17/21 4:15 PM) Pulse Rate [55-90 bpm] 74 bpm (01/17/21 12:22 PM) Body Mass Index [18.5-24.99] 40.28 *>HHI* (01/17/21 12:22 PM) Blood Pressure [90-138/55-84 mm Hg] 130/64mm Hg (01/17/21 4:45 PM) 136/69mm Hg (01/17/21 4:30 PM) 138/69mm Hg (01/17/21 4:15 PM) Respiratory Rate [16-30 br/min] 18 br/min (01/17/21 5:14 PM) 16 br/min (01/17/21 4:45 PM) 21 br/min (01/17/21 4:30 PM) Temperature [96.8-100.4 DegF] 97.0 DegF (01/17/21 3:45 PM) 97.2 DegF (01/17/21 12:22 PM) Liters per Minute 3 L/min (01/17/21 4:15 PM) 3 L/min (01/17/21 4:00 PM) 3 L/min (01/17/21 3:45 PM) Mode of Delivery (Oxygen) Room air (01/17/21 4:45 PM) Room air (01/17/21 4:30 PM) Nasal cannula (01/17/21 4:15 PM) Blood pressure sites Arm, right (01/17/21 4:45 PM) Arm, right (01/17/21 4:30 PM) Arm, right (01/17/21 4:15 PM) Temperature Route Temporal (01/17/21 3:45 PM) Temporal (01/17/21 12:22 PM) Dry Weight 116.4 kg (01/17/21 12:22 PM) Weight Obtained Via Standing scale (01/17/21 12:22 PM) Dry Weight Obtained Via Standing scale (01/17/21 12:22 PM) Social History Social History Type Response Smoking Status Never (less than 100 in lifetime) entered on: 01/10/20 Sex
--- OUTSIDE RECORDS SUMMARY | 2022-11-23 06:10 | XMS_ITS | Continuity of Care Document ---
Author Name Unknown Organization [facility] Address [address] [place] [phone]- Care Team Providers Care Chief Learning Officer Name Role Phone Lee VIEYRA, Dora Figueroa Primary Care Physician En[place] [facility] [place] Date(s): 02/24/22 - 03/26/22 [facility] [address] [address] Attending Physician: Rojelio Clark Admitting Physician: Rojelio Clark Referring Physician: Rojelio Clark Allergies, Adverse Reactions, Alerts No Known Allergies Problem List Condition Effective Dates Status Health Status Inform ant Nephrolithiasis(Confirmed) Active Menorrhagia(Confirmed) Active Uses oral contraception(Confirmed) Active PCOS (polycystic ovarian syndrome)(Confirmed) Active Nexplanon in place(Confirmed) Active Social History Social History Type Response Smoking Status Never (less than 100 in lifetime) entered on: 01/10/20 Sex
--- OUTSIDE RECORDS SUMMARY | 2022-11-23 06:10 | XMS_ITS | Continuity of Care Document ---
Author Name Unknown Organization [facility] Address [address] [place] [address]- Care Team Providers Care Leading Firefighter Name Role Phone Lee VIEYRA, Dora Figueroa Primary Care Physician Encounter [facility] [place] Date(s): 06/05/22 - 07/05/[address] [address]- Allergies, Adverse Reactions, Alerts No Known Allergies Medications Nexplanon 68 mg subcutaneous implant 1 each = 68 mg, Subcutaneous Infusion, Once, 0 Refills, Maintenance, 03/29/22 14:19:00 EDT, Partialfill upon patient request if the prescription is for a schedule II opioid drug. Start Date: 03/29/22 Status: Ordered Vitamin D 53685 iu oral capsule 1, capsule, By Mouth, [...] Physician Member Role: PCP Address: Address: [address] [place] [address]- Care Team Related Persons Name: MAINE BUCHANAN Address: home [address] [place] [address]
--- OUTSIDE RECORDS SUMMARY | 2022-11-23 06:10 | XMS_ITS | Continuity of Care Document ---
Author Name Unknown Organization [facility] Address [address] [place] [address]- Care Team Providers Care Frit Coater Name Role Phone Lee VIEYRA, Dora Figueroa Primary Care Physician Encounter [facility] Date(s): 01/21/21 - 02/20/21 [facility] [address] [address] Allergies, Adverse Reactions, Alerts Substance Reaction Severity Status NKA Active Problem List Condition Effective Dates Status Health Status Inform ant Nephrolithiasis(Confirmed) Active Menorrhagia(Confirmed) Active Uses oral contraception(Confirmed) Active PCOS (polycystic ovarian syndrome)(Confirmed) Active Nexplanon in place(Confirmed) Active Social History Social History Type Response Smoking Status Never (less than 100 in lifetime) entered on: 01/10/20 Sex
--- OUTSIDE RECORDS SUMMARY | 2022-11-23 06:10 | XMS_ITS | Continuity of Care Document ---
Author Name Unknown Organization [facility] Address [address] [place] [address]- Care Team Providers Care Patented Hogshead Assembler Name Role Phone Lee VIEYRA, Dora Figueroa Primary Care Physician Encounter [facility] Date(s): 07/08/20 - 08/07/20 [facility] [address] [address] Allergies, Adverse Reactions, Alerts Substance Reaction Severity Status NKA Active Problem List Condition Effective Dates Status Health Status Inform ant Nephrolithiasis(Confirmed) Active Menorrhagia(Confirmed) Active Uses oral contraception(Confirmed) Active PCOS (polycystic ovarian syndrome)(Confirmed) Active Nexplanon in place(Confirmed) Active Social History Social History Type Response Smoking Status Never (less than 100 in lifetime) entered on: 01/10/20 Sex
[2022-11-23 06:27] LABS: UPreg QC Valid YES; Urine Pregnancy NEGATIVE (NEGATIVE)
[2022-11-23] MEDS: Lactated Ringers 1,000 ML 999 ML IV (06:33)
[2022-11-23] MEDS: Lactated Ringers 1,000 ML 100 ML IVCONT ×3 (06:34→21:22)
[2022-11-23] MEDS: Aprepitant 32 MG/4.4 ML VIAL IVPUSH (07:22)
--- NOTE | 2022-11-23 07:29 | HO.ANESPROP2 ---
[facility] Active Problems Active Problems: All Active Problems (Updated 11/15/22 @ 11:44 by Morteza Zarate MD) BMI 37.0-37.9, adult (Acute) BMI 38.0-38.9,adult (Acute) Obesity (Acute) Vitamin B1 deficiency (Acute) Vitamin B12 deficiency (Acute) Nephrolithiasis (Acute) PCOS (polycystic ovarian syndrome) (Acute) GERD (gastroesophageal reflux disease) (Acute) Morbid obesity (Acute) Elevated liver enzymes (Acute) Impaired fasting glucose (Acute) Vitamin D deficiency (Acute) Anxiety and depression (Acute) Morbid obesity with BMI of 40.0-44.9, adult (Acute) History of irregular menstrual bleeding (Acute) Past Medical History Medical History Anxiety and depression BMI 37.0-37.9, adult Folliculitis Fracture of distal end of right fibula GERD (gastroesophageal reflux disease) History of irregular menstrual bleeding Lumbago without sciatica Morbid obesity Morbid obesity with BMI of 40.0-44.9, adult Nephrolithiasis PCOS (polycystic ovarian syndrome) Family History Family History (Updated 10/04/22 @ 15:48 by SOLITARIO Suarez) Mother Asthma Diabetes mellitus Maternal Grandmother Diabetes mellitus Pancreatic cancer Father No problems noted. Sister PCOS (polycystic ovarian syndrome) Sister No problems noted. Paternal Uncle No problems noted. Maternal Uncle Mental health disorder Surgical History Surgical History (Updated 10/04/22 @ 15:48 by SOLITARIO Suarez) History of root canal procedure Hx of wisdom tooth extraction S/P ORIF (open reduction internal fixation) fracture History of Problems with Anesthesia: No Social History Social History (Updated 10/04/22 @ 15:46 by SOLITARIO Suarez) Household Members Other:: Parents Housing: Apartment Are you a primary director of patient care to a significant other at home: No Do you presently have visiting nurse or other home services: No Alcohol intake: current Alcohol intake frequency: holidays/special occasions only Patient Tobacco Use Status: Never used Tobacco e-Cigarette/Vaping Use: Never Used Use of substances other than those prescribed or required for medical reasons: No Have you been hit, kicked, punched, or otherwise hurt by someone within the past year? If so, by whom?: No Are you DNR?: No Advance Directives: No Advance Directives Information Provided: Yes (Mailed w/ pre-op instructions) Advance Directives on File: No Recently lost weight without trying: No How much weight loss: 14-23 pounds Eating poorly because of decreased appetite: No Nutrition screen score: 2 Nutrition Risks: No Nutritional Risk Patient : No Poor oral hygiene: No (Crowns) service: No Current occupational status: employed Cognitive needs: No Hearing needs: No Vision needs: No Meds Allergies Allergy/AdvReac Type Severity Reaction Status Date / Time No Known Allergies Allergy Verified 11/15/22 11:47 [No Known Allergies*] Active Medications: Current Medications Lactated Ringer's (Lr) 1,000 mls @ 999 mls/hr IV .Q1H1M [facility] Stop: 11/23/22 08:00 Last Admin: 11/23/22 06:33 Dose: 999 mls/hr Lactated Ringer's (Lr) 1,000 mls @ 100 mls/hr IVCONT .Q10H [facility] Last Admin: 11/23/22 06:34 Dose: 100 mls/hr Exam Exam Date and Time: November 23, 2022 0729 Height,Weight and Vital Signs: Height 5 ft 7 in Weight 108.409 kg Last Vital Signs Temp 98 F 11/23/22 06:07 Pulse 68 11/23/22 06:07 Resp 18 11/23/22 06:07 BP 130/73 11/23/22 06:07 Pulse Ox 98 11/23/22 06:07 O2 Del Method Room Air 11/23/22 06:07 Pertinent Lab Results Pertinent Lab Results: Laboratory Tests 11/17/22 11/17/22 11/17/22 10:25 10:27 10:27 WBC 5.8 RBC 4.67 Hgb 13.4 Hct 40.5 MCV 86.7 MCH 28.7 MCHC 33.1 RDW 13.2 Plt Count 271 MPV 10.4 Immature Gran % (Auto) 0.2 Neut % (Auto) 61.3 Lymph % (Auto) 27.4 Hitchcock % (Auto) 6.9 Eos % (Auto) 3.0 Baso % (Auto) 1.2 Lymph # (Auto) 1.6 Hitchcock # (Auto) 0.4 Eos # (Auto) 0.2 Baso # (Auto) 0.1 Abs Immat Gran (auto) 0.01 Absolute Neuts (auto) 3.5 Absolute Nucleated RBC 0.000 Nucleated RBC % (auto) 0.0 PT 11.3 INR 1.0 APTT 28.8 Sodium Potassium Chloride Carbon Dioxide Anion Gap BUN Creatinine Estim Creat Clear Calc Estimated GFR Random Glucose Estimat Average Glucose Hemoglobin A1c % Insulin Level Calcium Total Bilirubin AST ALT Alkaline Phosphatase C-Reactive Protein Total Protein Albumin Triglycerides Cholesterol LDL Cholesterol, Calc HDL Cholesterol TSH Urine Test COVID-19 (MELISSA) COVID-19 Clin Com Blood Type A Negative Antibody Screen NEGATIVE 11/17/22 11/17/22 11/22/22 10:27 10:27 14:40 WBC RBC Hgb Hct MCV MCH MCHC RDW Plt Count MPV Immature Gran % (Auto) Neut % (Auto) Lymph % (Auto) Hitchcock % (Auto) Eos % (Auto) Baso % (Auto) Lymph # (Auto) Hitchcock # (Auto) Eos # (Auto) Baso # (Auto) Abs Immat Gran (auto) Absolute Neuts (auto) Absolute Nucleated RBC Nucleated RBC % (auto) PT INR APTT Sodium 140 Potassium 4.1 Chloride 109 H Carbon Dioxide 24 Anion Gap 11 L BUN 10 Creatinine 0.68 Estim Creat Clear Calc 161.8 Estimated GFR > 60 Random Glucose 89 Estimat Average Glucose 94 Hemoglobin A1c % 4.9 Insulin Level 25 Calcium 9.2 Total Bilirubin 0.5 AST 27 ALT 45 H Alkaline Phosphatase 62 C-Reactive Protein 0.24 Total Protein 7.1 Albumin 4.3 Triglycerides 73 Cholesterol 140 LDL Cholesterol, Calc 90 HDL Cholesterol 36 TSH 1.42 Urine Test COVID-19 (MELISSA) Negative COVID-19 Clin Com See Note Blood Type Antibody Screen 11/23/22 06:05 WBC RBC Hgb Hct MCV MCH MCHC RDW Plt Count MPV Immature Gran % (Auto) Neut % (Auto) Lymph % (Auto) Hitchcock % (Auto) Eos % (Auto) Baso % (Auto) Lymph # (Auto) Hitchcock # (Auto) Eos # (Auto) Baso # (Auto) Abs Immat Gran (auto) Absolute Neuts (auto) Absolute Nucleated RBC Nucleated RBC % (auto) PT INR APTT Sodium Potassium Chloride Carbon Dioxide Anion Gap BUN Creatinine Estim Creat Clear Calc Estimated GFR Random Glucose Estimat Average Glucose Hemoglobin A1c % Insulin Level Calcium Total Bilirubin AST ALT Alkaline Phosphatase C-Reactive Protein Total Protein Albumin Triglycerides Cholesterol LDL Cholesterol, Calc HDL Cholesterol TSH Urine Test NEGATIVE COVID-19 (MELISSA) COVID-19 Clin Com Blood Type Antibody Screen Airway Mallampati Class: II TM Dist: >3cm Neck ROM: Full Denture: Upper Loose/Missing/Broken Teeth: No Heart: RRR Lungs: CTA Assessment and Plan Assessment Anesthesia Assessment: Anesthesia Plan Discussed and Chart Reviewed Final Anesthetic Review History of Problems with Anesthesia: No NPO: Yes ASA Class: II Final Preanesthetic Review: Meds/Allgs Chart Reviewed, Consent Obtained/Reviewed and Anes Risks/Benef Reviewed Patient Risk: Low Procedure Risk: Intermediate Anesthetic Plan Anesthetic Plan: GA Disposition: Standard PACU
--- NOTE | 2022-11-23 07:51 | P.BOP_ITS ---
Brief Operative Note Date of Service: 11/23/22 Pre-op diagnosis: Severe obesity with comorbidities (see below) Post-op diagnosis: same Procedure: INITIAL PATIENT BMI ON PRESENTATION AT OUR OFFICE: 40.4 kg/m2 LAST BMI BEFORE SURGERY: 36.9 kg/m2 COMORBIDITIES: GERD, PCOS, prediabetes, nephrolithiasis ?The patient presented to the Weight Management Program with significant obesity that was negatively impacting the patient's comorbidities as listed above.? The program is a phased program with a special focus on preoperative medical weight management to promote substantial weight loss and prepare the patients for the second phase of the program: bariatric surgery. The patient participated in an intensive weekly lifestyle ?intervention and exercise program during which the patient ?has lost between the initial office visit and the last preoperative visit 22.8 lbs, or 8.84% of initial actual body weight. It was deemed appropriate for the patient to now have bariatric surgery. In light of the current Covid-19 pandemic and the well documented strong association of obesity and increased risk of worse outcomes if infected with Covid-19 (REFERENCES: https://pubmed.ncbi.nlm.nih.gov/17631304/ ,? https:/ /pubmed.ncbi.nlm.nih.gov/20280982/ ), any delay in undergoing bariatric surgery may lead to the patient's worsening health condition and increased?risk of more severe Covid-19 disease if infected. In addition a recent?study from [facility] published in [facility] [employer] on 08/01/2021 ([email or web address]:/[email or web address]) found that, among patients with obesity, substantial weight loss achieved with surgery was associated with improved outcomes of COVID-19 infection. The findings suggest that obesity can be a modifiable risk factor for the severity of COVID-19 infection. In addition, the patient met the BMI-criteria for bariatric surgery based on the BMI on initial presentation. The patient should not be penalized for achieving such weight loss because ?it is not sustainable long-term without surgical intervention and it was achieved in preparation for bariatric surgery ?under my direction and based on my published research ([email or web address]).pdf and? https://www.soard.org/article/B0367-9827(34)43869-X/pdf ) ?that a 10% preoperative weight loss improves long-term weight loss after surgery and reduces perioperative complications.? Insurance carriers such as [facility] have endorsed my recommendations ?and have included in their policies criteria to include a 10% preoperative weight loss requirement. PROCEDURE: Esophago-gastroscopy, laparoscopic lysis of adhesions, laparoscopic sleeve gastrectomy and laparoscopic gastropexy INDICATIONS: This is a 22 year-old female who was electively scheduled for laparoscopic, possibly open sleeve gastrectomy. The risks and complications of the procedure were discussed with the patient in advance, particularly the po ssibility of ; pulmonary embolism; staple line leak; bleeding; GERD; cardiac, pulmonary, or renal complications; as well as long-term problems such as insufficient weight loss, vitamin deficiency, strictures, or ulcers. The patient understood all the risks, and was in agreement to proceed with surgery. DESCRIPTION OF PROCEDURE: After informed consent was obtained from the patient, the patient was given preoperative antibiotics, and was transferred to the operating room. After successful induction of general anesthesia, pneumatic compression devices were placed on both lower extremities. An upper endoscopy was performed next. The oropharynx and esophagus appeared to be within normal limits. There was a diaphragmatic hernia present of moderate size consistent with the findings of the preoperative upper GI. The stomach was entered. Then after all fluid and air were suctioned and the stomach was fully decompressed, the scope was withdrawn and secured in the mid esophagus. The patient was then prepped and draped in the usual sterile manner, and abdominal access was established at the right upper quadrant with the Lottie technique. A 12 mm blunt port was inserted, and the abdomen was insufflated with CO2 to a pressure of 15 mmHg. Under direct visualization, additional ports were placed, specifically two 5 mm Versi-step ports to the left upper quadrant, and a 5 mm Versi-Step port to the right upper quadrant. 1% lidocaine plain was used to infiltrate all port sites as well as all fascia defects. Following that, the patient was placed in a steep reverse Trendelenburg positi on. An additional 5 mm port was placed to the right flank for the Mediflex retractor that was used to retract the left lobe of the liver. The gastro-esophageal fat pad was opened with the ultrasonic device (Thunderbeat, Olympus) and the anterior esophagus and hiatus were exposed. The angle of His was opened with the ultrasonic device the fundus of the stomach from any diaphragmatic and splenic attachments. I then opened the gastrocolic ligament between the transverse colon and the greater curvature of the stomach with the ultrasonic device to enter the lesser sac and facilitate the ligation of the short gastric vessels. I started at a mid-point along the greater curvature and using the Thunderbeat, all short gastric vessels were divided all the way to the angle of His until the left tiffany was completely dissected at its entirety. I then divided the gastro-colic ligament distally to a distance of about 3-4 cm proximal to the pylorus. There were extensive congenital adhesions between the pancreas and posterior gastric wall. Those were lysed completely with the ultrasonic device. Adhesiolysis took approximately 45 min to complete. The stomach was then divided transversely with three Endo MELISSA-45 purple and three MELISSA-60 articulating purple loads using the AuthernativeIA stapler and loads. Every effort was made that the gastric sleeve had a tubular shape and an even caliber throughout. Once the sleeve resection was completed, the staple line of the gastric sleeve was reinforced with Hemoclips. The resected stomach was retrieved without difficulty from the Lottie port. A gastropexy was then performed in order to prevent postoperative GERD and partial gastric volvulus. Several interrupted 2.0 Surgidac sutures were placed between the sleeve's staple line and the previously divided greater omentum and gastro-colic ligament using the Endo-Stitch device. ?An upper endoscopy was performed. There was no narrowing at the GE junction. The scope was easily advanced all the way to the pylorus which was clearly visualized. There was no narrowing anywhere and the sleeve's caliber was even throughout. The sleeve's staple line was inspected and there was no evidence of ischemia, bleeding or dehiscence. At that point the gastroscope was withdrawn from the patient?s mouth while we were decompressing the bowel and the stomach from any remaining air. I looked into the lesser sac to see how the sleeve was situating and it was situating well. There was no bleeding from the staple line, spleen, or short gastric vessels. The Mediflex retractor was removed, and the undersurface of the liver was inspected and there was no bleeding. The patient was placed in supine position. I closed the fascial defect of the 12 mm port site with a figure of eight #1 Polysorb suture. Then 30cc Ropivacaine plain with 10 mg of Dexamethasone were used to infiltrate the fascial closure as well as all skin incisions. A total of 7ml of Zynrelef was applied in the Lottie wound. At this point, the abdomen was deflated, all ports were removed under direct vision, and no bleeding was noted from any of the port sites. The skin incisions were irrigated with saline and were closed with 4-0 absorbable monofilament sutures. Steri-Strips and OpSites were used to cover all incisions. The patient was extubated and was transferred in stable condition to the recovery room for further care. I was present and performed all lorenzo parts of the procedure. Mr. Ang was the rn first assistant. There were no residents to assist with this case. Amadou Zarate MD, PhD, FACS Surgeon: Morteza Zarate MD Anesthesia: GETA, local and other (TAP block and 7ml Zynrelef) Was an Flight Communications Operator used for this Procedure?: Yes Flight Communications Operator: Ricco Ang Estimated blood loss (mL): 10 IV fluids (mL): 2,000 Urine output (mL): 0 Pathology: other (Stomach) Condition: stable Disposition: PACU
--- NOTE | 2022-11-23 07:52 | PM.PNGS ---
Subjective Subjective Date of Service: 11/24/22 Interval history: Feels well. Mild incisional pain. She is tolerating phase 1 bariatric diet Physical Exam Vital Signs: Vital Signs: Last Vital Signs Temp 98 F 11/23/22 06:07 Pulse 68 11/23/22 06:07 Resp 18 11/23/22 06:07 BP 130/73 11/23/22 06:07 Pulse Ox 98 11/23/22 06:07 O2 Del Method Room Air 11/23/22 06:07 BMI result Body Mass Index 37.4 GI: Inspection: Yes normal to inspection, Yes incision (clean, dry and intact) and Yes obesity Palpation (GI): Soft to palpation Extrem: Right lower extremity: normal to inspection (no calf tenderness) Left lower extremity: normal to inspection (no calf tenderness) Objective Data Active Medications Lactated Ringer's (Lr) 1,000 mls @ 999 mls/hr IV .Q1H1M [facility] Stop: 11/23/22 08:00 Last Admin: 11/23/22 06:33 Dose: 999 mls/hr Documented By: WILLIAMS Lactated Ringer's (Lr) 1,000 mls @ 100 mls/hr IVCONT .Q10H [facility] Last Admin: 11/23/22 06:34 Dose: 100 mls/hr Documented By: WILLIAMS Labs 11/17/22 10:27 11/17/22 10:27 Labs: Laboratory Results - last 24 hr 11/22/22 11/23/22 14:40 06:05 Urine Test NEGATIVE COVID-19 (MELISSA) Negative COVID-19 Clin Com See Note Procedures Date of Service Date of Service: 11/24/22 Progress Note: A&P Assessment and plan (1) Obesity: Status: Acute Assessment and Plan: s/p laparoscopic sleeve gastrectomy, lysis of adhesions and gastropexy Doing well Will check am labs and if OK the patient will be discharged home (2) BMI 36.0-36.9,adult: Status: Acute (3) Congenital intra-abdominal adhesions: Status: Acute (4) Status post sleeve gastrectomy: Status: Acute (5) GERD (gastroesophageal reflux disease): Status: Acute (6) PCOS (polycystic ovarian syndrome): Status: Acute (7) Nephrolithiasis: Status: Acute (8) Elevated liver enzymes: Status: Acute (9) Anxiety and depression: Status: Acute Time Spent With Patient Time: Total time managing care of this patient today ____ minutes. Quality Stroke Does the patient have a stroke diagnosis?: No VTE Prior VTE?: No VTE Risk Level:: Surgical - moderate VTE Device Contraindication: N/A - Device Ordered VTE Drug Contraindication: Treatment Not Indicated
--- NOTE | 2022-11-23 10:22 | PM.DS ---
DS: Providers Provider Date of Service: 11/24/22 Date of admission: 11/23/22 06:07 Primary care physician: BARBARA Reece DS: Diagnosis Discharge Diagnosis (1) Obesity: Status: Acute (2) BMI 36.0-36.9,adult: Status: Acute DS: Summary Hospital Course Hospital Course: ADMITTING DIAGNOSIS: obesity,PCOS, GERD, anxiety ? DISCHARGE DIAGNOSIS: same, s/p laparoscopic sleeve gastrectomy ? PAST SURGICAL HISTORY: ORIF Right Fib ? PROCEDURE: upper endoscopy, laparoscopic sleeve gastrectomy ? DISCHARGE SUMMARY: ? History of Present Illness: ? The patient is a?22 year-old woman with a BMI of?40.3 kg/m2 and associated co-morbidities as described above. The patient had extensive work-up,lost?19.4 lbs preoperatively and was electively scheduled for laparoscopic, possible open sleeve gastrectomy and gastropexy. Risks and complications of the surgery were discussed with the patient in advance, particularly the possibility of , pulmonary embolism, anastomotic leak, bleeding, bowel injury, GERD, cardiac, renal or pulmonary complications. The patient understood all the risks and was in agreement with the surgical plan. ? Hospital Course: ? The patient underwent an uneventful laparoscopic sleeve gastrectomy with gastropexy on the day of admission. Postoperatively, the patient was transferred to the surgical floor. The patient received IV Acetaminophen and IV dilaudid for pain control. Patient was started on bariatric phase 1 diet POD #0. On postoperative day one, the patient was feeling well without nausea, vomiting, fevers, or tachycardia. The patient had some mild incisional pain and the abdomen was soft. ? On the morning of postoperative day one, the patient was continued on 1 ounce of water or ice every half hour. During the day, the patient did fairly well, having some incisional pain, but able to ambulate adequately and to tolerate liquids well. ? Since the patient is doing well, we decided that the patient was ready to be discharged. The patient was given instructions to follow-up with me next week and to call my office for any fever over 101, persistent abdominal pain, nausea, vomiting, GERD, symptoms of DVT such as calf tenderness, or leg swelling, or pulmonary embolism such as chest pain or shortness of breath. The patient was also instructed to drink 40-60 ounces of liquids per day using the 1-ounce cups. The patient had been given prescriptions for Tylenol for pain, Zofran prn for nausea, and pantoprazole and carafate previously. The patient was encouraged to ambulate and use the incentive spirometer. The patient was allowed to shower, but no baths, and encouraged to stay active at home. All of these instructions were given to the patient personally. All questions were answered and the patient understood all instructions, the instructions were also given to the patient in print. Time Spent with Patient Time attestation: Total time managing care of this patient today ____ minutes. Discharge coordination time: Less than 30 minutes Quality: Safe Use of Opioids Does Pt have an Active Cancer Diagnosis on the Problem List?: No Quality: Stroke Does the patient have a stroke diagnosis?: No Physical Exam Vital Signs: Vital Signs: Last Vital Signs Temp 98 F 11/23/22 06:07 Pulse 68 11/23/22 06:07 Resp 18 11/23/22 06:07 BP 130/73 11/23/22 06:07 Pulse Ox 98 11/23/22 06:07 O2 Del Method Room Air 11/23/22 06:07 BMI result Body Mass Index 37.4 DS: Data Data Completed and Pending Pending studies at discharge: Pending at discharge 11/23/22 09:24 Surgical [PTH] Routine Labs on day of discharge: Laboratory Results - last 24 hr 11/22/22 11/23/22 14:40 06:05 Urine Test NEGATIVE COVID-19 (MELISSA) Negative COVID-19 Clin Com See Note Discharge Plan Discharge Anticipated Discharge Date/Time: 11/24/22 10:00 Patient Disposition: Home, Self-Care Discharge Diagnosis: s/p laparoscopic sleeve gastrectomy Referrals: Britni Hilario FNP [Primary Care Provider] - 1 Week Discharge Medications: Continued pantoprazole 40 mg tablet,delayed release (DR/EC) 40 mg PO DAILY Qty: 30 2RF sucralfate 100 mg/mL suspension 10 ml PO BID Qty: 400 2RF Patient Comments: postop meds ondansetron 4 mg tablet,disintegrating 4 mg PO Q12H Qty: 20 0RF Patient Comments: postop meds Rx Instructions: Only take one every 12 hours as needed if you have nausea Discontinued cholecalciferol (vitamin D3) 125 mcg (5,000 unit) capsule 125 mcg PO DAILY Qty: 30 2RF mecobalamin (vitamin B12) 1,000 mcg tablet,disintegrating 1,000 mcg sublingual DAILY Qty: 30 1RF Rx Instructions: place tablet under tongue and allow to dissolve for at least30 secs before swallowing thiamine HCl (vitamin B1) 100 mg tablet 100 mg PO DAILY Qty: 30 2RF Activity on Discharge: No heavy lifting Stand Alone Forms: Patient Portal Discharge page Care Plan Goals: weight loss Health Concerns: obesity Plan of Treatment: No tub baths, sex or returning to work until discussed at first post op appointment. No exercise, alcohol, tobacco or illegal drug use. Continue to use incentive spirometer hourly while awake. Walk in home for 5- 10 minutes every 2 hours during the first week. Follow all instructions in the bariatric handbook and call with any questions.Discharge Instructions 1. Please call your doctor or come back to the emergency room should any new symptoms arise. 2. You will receive a courtesy call from [facility] 24-48 hours after discharge. 3. Activity: abstain from alcohol, practice limited stair climbing, no bending, no driving, no exercise, no illicit substances, no lifting, no sex, no tub bath, no work. 4. Diet: continue as discussed with Dr. Zarate. 5. Dressing Change/Wound Care: Your incision is covered by clear bandages and guaze underneath. If the area is tender, you may apply an ice pack for short intervals (no more than 20 minutes on, followed by at least 20 minutes off). Do not apply heat. Do not use creams, lotions, or topical antibiotics unless instructed to do so by your surgeon. These can cause infection or allergic reaction. 6. Call your doctor if: - Your temperature exceeds 101.5 F - You experience excessive pain or swelling - You have an unexpected reaction to medication - You have excessive bleeding - You experience continued vomiting/nausea - Your incision begins to separate - Your incision shows signs of infection such as increased redness, swelling, excessive pain, heat, or drainage (light blood or clear fluid is normal) 7. General instructions: No lifting greater than 5 lbs for the next 4 weeks[address] driving within 24 hours of taking narcotic pain medications. If you do not move your bowels in the next 2 days, please take milk of magnesia over the counter. Please follow the post op diet and do not advance your diet until you are seen in the office in about 2 weeks. Please walk around your home every hour or two to prevent blood clots from forming in your legs. You do not need to wake from sleeping to walk. Please sleep in a bed or couch to prevent kinking at the hips and knees. Please take your incentive spirometer (your lung research development manager) home with you and use it for the next few days to prevent pneumonias. You may shower, no hot tubs, baths or swimming pools. Please call the office with any questions or concerns such as increasing abdominal pain, fever, chills, shortness of breath, chest pain, leg pain or swelling, or redness or drainage from your incisions. Please stay on stage 3 diet which includes sugar free clear liquids such as ice pops and jello and broth and crystal light. Avoid all carbonation. Please drink 3 protein shakes with at least 25-30 grams of protein daily or 3 of the Celebrate 4:1 shakes which can be purchased in our office. The Celebrate shakes have all of the bariatric vitamins you need if you consume these shakes. If you are drinking other protein shakes, you will need to purchase the Celebrate multivitamins and calcium that we provide in the office (they will provide all the vitamins you need). Please make sure you are consuming at least 40-60 ounces of water in addition to your 3 protein shakes daily. Do not hesitate to contact the office with any questions at . The patient's medical history has been reviewed and they are considered low risk for post op DVT and therefore DVT prophylaxis is not considered necessary. Travel after surgery was reviewed. The patient has not disclosed any travel plans during the first 30 days after surgery and they have been advised that within the first 30 days after surgery any bus, plane, train or car travel over 2 hours in duration is contraindicated due to the possibility of developing blood clots from immobility. Any travel, needs to include periods of ambulation of 10 minutes in duration every 2 hours.? The patient was instructed to discuss any plans for travel during this period with their bariatric surgeon. Assessment: stable s/p laparoscopic sleeve gastrectomy
--- NOTE | 2022-11-23 10:56 | PHA.MEDREC ---
Pharmacy Consult ? Medication Reconciliation Pharmacy has completed the medication reconciliation.
[2022-11-23 11:04] LABS: Hematocrit 44.5 % (37.0-47.0); Hemoglobin 14.7 g/dl (12.0-16.0)
[2022-11-23 11:33] LABS: Anion Gap 15 (12-20); Blood Urea Nitrogen 8 mg/dL (9-16); Calcium 9.2 mg/dL (8.4-10.2); Carbon Dioxide 23 mmol/L (22-29); Chloride 105 mmol/L (96-108); Creatinine Clr Calc Pharmacy 132.5; Estimated Glomerular Filt Rate > 60; Glucose Random 134 mg/dL (60-115); Potassium 4.4 mmol/L (3.3-5.1); Sodium 139 mmol/L (135-145)
[2022-11-23] MEDS: ceFAZolin Sodium/Dextrose,Iso 2 GM/50 ML PIGGYBACK IV (12:58)
[2022-11-23] MEDS: Acetaminophen 1,000 MG/100 ML PIGGYBACK 16.7 MG IV ×2 (13:57→18:03)
[2022-11-23] MEDS: Famotidine/PF 20 MG/2 ML VIAL IVPUSH (21:23)
[2022-11-24] MEDS: Acetaminophen 1,000 MG/100 ML PIGGYBACK 16.7 MG IV ×2 (00:07→06:22)
[2022-11-24 03:32] VITALS: BP 123/69; PULSE 56; RESP 18; TEMP 36.3; O2SAT 97
[2022-11-24 06:14] LABS: MANUAL DIFF FLAG NO
[2022-11-24] MEDS: Lactated Ringers 1,000 ML 100 ML IVCONT (06:23)
[2022-11-24 06:42] LABS: Anion Gap 12 (12-20); Blood Urea Nitrogen 7 mg/dL (9-16); Calcium 9.5 mg/dL (8.4-10.2); Carbon Dioxide 23 mmol/L (22-29); Chloride 108 mmol/L (96-108); Creatinine Clr Calc Pharmacy 171.9; Estimated Glomerular Filt Rate > 60; Glucose Random 94 mg/dL (60-115); Potassium 4.2 mmol/L (3.3-5.1); Sodium 139 mmol/L (135-145)
[2022-11-24 06:44] LABS: Basophils Percent Auto 0.2 % (0-2); Eosinophils Percent Auto 0.1 % (0-4); Hematocrit 40.5 % (37.0-47.0); Hemoglobin 13.5 g/dl (12.0-16.0); Imm Gran Abs Auto 0.06 X10*3/uL (0.00-0.03); Imm Gran Pct Auto 0.5 % (0.0-0.4); Lymphocytes Absolute Auto 1.5 X10*3/uL (1.2-4.9); Lymphocytes Percent Auto 11.7 % (20-40); Mean Corpuscular HGB Conc 33.3 g/dl (31.0-35.0); Mean Corpuscular Hemoglobin 29.1 pg (27.0-33.0); Mean Corpuscular Volume 87.3 fL (80.0-98.0); Mean Platelet Volume 10.7 fL (9.4-12.3); Monocytes Absolute Auto 0.9 X10*3/uL (0.1-1.2); Monocytes Percent Auto 7.5 % (2-11); Neutrophils Absolute Auto 9.9 x10*3/uL (2.0-8.3); Platelet Count 278 X10*3/uL (160-400); Red Blood Count 4.64 X10*6/uL (4.20-5.50); Red Cell Distribution Width 13.2 % (11.0-16.0); White Blood Count 12.4 X10*3/uL (4.8-10.8)
[2022-11-24] MEDS: Famotidine/PF 20 MG/2 ML VIAL IVPUSH (07:12)
[2022-11-24] MEDS: 0.9 % Sodium Chloride Flush 3 ML SYRINGE IVFLUSH (07:12)
[2022-11-24 08:34] VITALS: BP 129/65; PULSE 53; RESP 20; TEMP 36.4; O2SAT 98
--- NOTE | 2022-11-24 08:37 | MHC.CM.PN ---
22yrs F S/P Gastric sleeve Lives with family. She is independent. Discharged today to home self care. She has arranged for family to provide transport home.
== END 2022-11-24 10:49 | disposition home or self-care (01) | DRG 403 ==
LOC: HO.SSSA 10:25 → HO.S3 10:49
PROVIDERS: Nurse Practitioner; Physician Assistant Surgical; Admitting Provider Surgery; PCP Nurse Practitioner Family; Visit Provider Surgery
PROC: 0DB64Z3 Excision of Stomach, Percutaneous Endoscopic Approach, Vertical (ICD-10-PCS; CPT 43845; principal; 2022-11-23 07:30)
DX: E66.01 Morbid (severe) obesity due to excess calories (principal); Q43.3 Congenital malformations of intestinal fixation; F32.A Depression, unspecified; F41.9 Anxiety disorder, unspecified; E28.2 Polycystic ovarian syndrome; K21.9 Gastro-esophageal reflux disease without esophagitis; R73.03 Prediabetes; N20.0 Calculus of kidney; K44.9 Diaphragmatic hernia without obstruction or gangrene; Z20.822 Contact with and (suspected) exposure to COVID-19; Z68.36 Body mass index [BMI] 36.0-36.9, adult; Z79.899 Other long term (current) drug therapy
CPT/HCPCS: 36415; 80048; 80053; 80061; 81025; 83036; 83525; 84443; 85014; 85018; 85025; 85610; 85730; 86140; 86850; 86900; 86901; 87635; 88304; 88305; 88307; 88342; A4649; C9088; C9145; J0131; J0690; J1100; J1170; J2250; J2795; J3010

== ENCOUNTER → 2022-11-28 13:17 | Outpatient (BNVA) | payer OTHER, SELFPAY | PROVIDERS: PCP Internal Medicine; Visit Provider Physician Assistant Surgical | DX: E66.01 Morbid (severe) obesity due to excess calories (principal); Z68.35 Body mass index [BMI] 35.0-35.9, adult; Z90.3 Acquired absence of stomach [part of] | CPT/HCPCS: 99212 ==

== ENCOUNTER → 2022-12-13 09:17 | Outpatient (BNVA) | payer OTHER, SELFPAY | PROVIDERS: PCP Internal Medicine; Visit Provider Physician Assistant Surgical | DX: E66.9 Obesity, unspecified (principal); K59.00 Constipation, unspecified; Z68.33 Body mass index [BMI] 33.0-33.9, adult | CPT/HCPCS: 99212 ==

== ENCOUNTER → 2022-12-27 14:50 | Outpatient (BNVA) | payer OTHER, SELFPAY | PROVIDERS: PCP Internal Medicine; Visit Provider Physician Assistant Surgical | DX: E66.9 Obesity, unspecified (principal); Z68.33 Body mass index [BMI] 33.0-33.9, adult; Z98.84 Bariatric surgery status | CPT/HCPCS: 99212 ==

== ENCOUNTER 2023-02-19 08:24 | Outpatient (AMB) | payer OTHER, SELFPAY ==
--- NOTE | 2023-02-19 08:27 | MHC.OFFVISWM ---
Intake VS Expanded 02/19/23 08:31 Height 5 ft 7 in Weight 196 lb 3.2 oz BMI 30.7 BP 121/57 L Blood Pressure Location Rt brachial Blood Pressure Position Sitting Pulse 58 Pulse Source Pulse Oximeter Temp 96.1 F L Temperature Source Temporal Artery Scan Pulse Oximetry 95 Oxygen Delivery Method Room Air Body Fat 75.2 Body Fat Percentage 38.4 Free Fat Mass 120.8 Muscle Mass 114.6 Visceral Mass 6.0 Water Mass 86.8 BMR 1,709 Intake Visit Reasons: (OV) PO LSG 11/23/22 Biological Technician Required: No Allergies No Known Allergies [No Known Allergies*] Allergy (Verified 02/19/23 08:29) Medication List - Last Reconciled 02/19/23 by TYREE Cifuentes bisacodyl (Dulcolax (bisacodyl)) [address] DAILY PRN pantoprazole 40 mg PO DAILY 90 days sennosides (Senna Lax) 17.2 mg (2 x 8.6 mg) PO BEDTIME PRN sucralfate 10 mL PO BID 90 days HPI HPI Comments History of Present Illness Details This?a?22?yo female who is s/p LSG without hiatal hernia repair on?11/23/[address] Zarate. Presents for 3 month post op visit. Weight today is 196.2 pounds, with a BMI of 30.7.? There has been a 61.6 pound weight loss,(initial weight 257.8 pounds) since starting the program on 10/11/22 reflecting a 23.8% total body weight loss and a weight loss of 42.3 pounds since surgery (operative weight 238.5 pounds) reflecting a 17.7% TBWL since surgery.? No complaints of nausea, emesis, abdominal pain or reflux. Reports infrequent but normal bowel movements every 5 days and complaing of constipation. No complaints of pain. Taking a regular mvi. Wants to start food States she didn't go to the gym last week. Present meal plan includes: 2 Orgain shakes 2 scoops 8-10,? 11-1 Orgain shake 1 scoop 2-4 pm ZP bar 5-8 Drinking 64 oz water daily ? Exercise routine includes: elliptical/treadmill/stairmaster 5 days per week, 500 or more calories? PFSH Medical History Anxiety and depression BMI 37.0-37.9, adult BMI 38.0-38.9,adult Folliculitis Fracture of distal end of right fibula GERD (gastroesophageal reflux disease) History of irregular menstrual bleeding Lumbago without sciatica Morbid obesity Morbid obesity with BMI of 40.0-44.9, adult Nephrolithiasis PCOS (polycystic ovarian syndrome) Surgical History History of root canal procedure Hx of wisdom tooth extraction S/P ORIF (open reduction internal fixation) fracture Family History Mother Asthma Diabetes mellitus Maternal Grandmother Diabetes mellitus Pancreatic cancer Father No problems noted. Sister PCOS (polycystic ovarian syndrome) Sister No problems noted. Paternal Uncle No problems noted. Maternal Uncle Mental health disorder Social History Household Members: Family Household Members Other:: Parents Housing: Apartment Are you a primary direct care counselor to a significant other at home: No Do you presently have visiting nurse or other home services: No Alcohol intake: current Alcohol intake frequency: holidays/special occasions only Patient Tobacco Use Status: Never used Tobacco e-Cigarette/Vaping Use: Never Used service: No Current occupational status: employed Cognitive needs: No Hearing needs: No Vision needs: No Review of Systems Const All systems reviewed & are unremarkable except as noted in HPI and below Physical Exam Vital Signs: Last Vital Signs Temp 96.1 F L 02/19/23 08:31 Pulse 58 02/19/23 08:31 BP 121/57 L 02/19/23 08:31 Pulse Ox 95 02/19/23 08:31 Oxygen Delivery Method Room Air 02/19/23 08:31 BMI result Body Mass Index 30.7 Const General: healthy appearing and no acute distress Resp Effort & Inspection: normal respiratory effort Auscultation: clear to auscultation bilaterally Cardio Rate: regular rate Rhythm: regular rhythm GI Auscultation: normal bowel sounds Extrem General: Yes normal to inspection Assessment & Plan Assessment & Plan (1) Obesity: Code(s): E66.9 - Obesity, unspecified Plan: chaneg meal plan: *-10 shake Orgain 2 scoops in 8 oz fairlife milk, may add ice Noonish meal 4 forks pro/4 forks veg 2-4 ZP bar 5-6 another meal like lunch Continue cardio, consider adding in weight training Change MVI to bariatric, fusion sampe given and Dequan+ D RTC 6 weeks video, 3 months in person Coding Level of Care Code Global (06022) Diagnoses Obesity E66.9
[2023-02-19 08:31] VITALS: BP 121/57; PULSE 58; TEMP 35.6; O2SAT 95; BMI 30.7
== END 2023-02-19 08:59 | disposition home or self-care (01) ==
PROVIDERS: PCP Internal Medicine; Visit Provider Physician Assistant Surgical
DX: E66.9 Obesity, unspecified (principal); Z68.30 Body mass index [BMI] 30.0-30.9, adult; Z90.3 Acquired absence of stomach [part of]; Z98.84 Bariatric surgery status
CPT/HCPCS: 99024

== ENCOUNTER → 2023-02-19 08:24 | Outpatient (BNVA) | payer OTHER, SELFPAY | PROVIDERS: PCP Internal Medicine; Visit Provider Physician Assistant Surgical ==

== ENCOUNTER 2023-05-15 08:17 | Outpatient (AMB) | payer OTHER, SELFPAY ==
--- NOTE | 2023-05-15 08:19 | MHC.OFFVISWM ---
Intake VS Expanded 05/15/23 08:25 BP 115/56 L Blood Pressure Location Rt brachial Blood Pressure Position Sitting Pulse 59 Pulse Source Pulse Oximeter Temp 97.2 F Temperature Source Temporal Artery Scan Pulse Oximetry 98 Oxygen Delivery Method Room Air Height 5 ft 7 in Weight 185 lb 12.8 oz BMI 29.1 Body Fat % 37.6 Body Fat Mass 69.8 Fat Free Mass 115.8 Visceral Fat Rating 5.0 Body Water % 44.9 Body Water Mass 83.4 Muscle Mass/Score 109.8 Basal Metabolic Rate/Score 1,638 Intake Visit Reasons: (OV) PO LSG 11/23/22 Private Duty Aide Required: No Allergies No Known Allergies [No Known Allergies*] Allergy (Verified 05/15/23 08:23) Medication List - Last Reconciled 05/15/23 by TYREE Cifuentes bisacodyl (Dulcolax (bisacodyl)) 10 mg [place] DAILY PRN sennosides (Senna Lax) 17.2 mg (2 x 8.6 mg) PO BEDTIME PRN HPI HPI Comments History of Present Illness Details This?a?22?yo female who is s/p LSG without hiatal hernia repair on?11/23/[address] Zarate. Presents for 6 month post op visit. Weight today is 185.8 pounds, with a BMI of 29.1.? There has been a 72 pound weight loss,(initial weight 257.8 pounds) since starting the program on 10/11/22 reflecting a 27.9% total body weight loss and a weight loss of 52.7 pounds since surgery (operative weight 238.5 pounds) reflecting a 22% TBWL since surgery.? No complaints of nausea, emesis, abdominal pain or reflux. Reports infrequent but normal bowel movements every 5 days and complaining of constipation. No complaints of pain. Taking bariatric fusion < and Dequan+D States she didn't go to the gym last week. Present meal plan includes: 8-10 shake Orgain 2 scoops in 8 oz fairlife milk, may add ice Noonish meal 4 forks pro/4 forks veg 2-4 ZP bar 5-6 another meal like lunch Drinking 64 oz water daily ? Exercise routine includes: elliptical/treadmill/stairmaster 5 days per week, 500 or more calories? 3 days on 1 day off Any post op complications: noen DULCE MARIA: never DM: never HTN: never Hyperlipidemia: never GERD:?0-5 scale ??0 = no symptoms ??1 = symptoms noticeable but not bothersome 2 =symptoms bothersome but not daily ? 3 = symptoms bothersome and daily 4 = symptoms affect daily activities 5 = symptoms are incapacitating, unable to do daily activities ? How bad is the heartburn: 0 ? Heartburn while lying down: 0 ? Heartburn when standing up: 0 ? Heartburn after meals: 0 ? Does heartburn change your diet: 0 ? Does heartburn wake you up from sleep: 0 ? Do you have difficulty swallowin ? Do you have pain with swallowin ? If you take medicine for your reflux, does this affect your daily life: 0 Satisfaction with present condition - satisfied or not satisfied: satisfied [facility] Medical History BMI 37.0-37.9, adult BMI 38.0-38.9,adult Nephrolithiasis PCOS (polycystic ovarian syndrome) GERD (gastroesophageal reflux disease) Morbid obesity Anxiety and depression Morbid obesity with BMI of 40.0-44.9, adult Folliculitis Fracture of distal end of right fibula Lumbago without sciatica History of irregular menstrual bleeding Surgical History History of root canal procedure Hx of wisdom tooth extraction S/P ORIF (open reduction internal fixation) fracture Family History Mother Asthma Diabetes mellitus Maternal Grandmother Diabetes mellitus Pancreatic cancer Father No problems noted. Sister PCOS (polycystic ovarian syndrome) Sister No problems noted. Paternal Uncle No problems noted. Maternal Uncle Mental health disorder Social History Household Members: Family Household Members Other:: Parents Housing: Apartment Are you a primary summer child caregiver to a significant other at home: No Do you presently have visiting nurse or other home services: No Alcohol intake: current Alcohol intake frequency: holidays/special occasions only Patient Tobacco Use Status: Never used Tobacco e-Cigarette/Vaping Use: Never Used service: No Current occupational status: employed Cognitive needs: No Hearing needs: No Vision needs: No Review of Systems Const All systems reviewed & are unremarkable except as noted in HPI and below Physical Exam Vital Signs: Last Vital Signs Temp 97.2 F 05/15/23 08:25 Pulse 59 05/15/23 08:25 BP 115/56 L 05/15/23 08:25 Pulse Ox 98 05/15/23 08:25 Oxygen Delivery Method Room Air 05/15/23 08:25 BMI result Body Mass Index 29.1 Const General: cooperative and no acute distress Orientation/consciousness: patient oriented x3 Resp Effort & Inspection: normal respiratory effort Auscultation: clear to auscultation bilaterally Cardio Rate: regular rate Rhythm: regular rhythm GI Inspection: Yes normal to inspection and Yes incision (well healed) Palpation (GI): Soft to palpation and no masses Neuro General: patient oriented x3 Assessment & Plan Assessment & Plan (1) Overweight (BMI 25.0-29.9): Code(s): E66.3 - Overweight Plan: Overall the patient is doing very well. We will change her meal plan: Orgain 2 scoops with 8 oz of [employer] milk Meal, 6 forks protein and 6 for vegetables x2. Continue her exercise pattern Check six-month labs Return to clinic 6 weeks. Orders: Orders Insulin Today E51.9 - Thiamine deficiency, unspecified, E53.8 - Deficiency of other specified B group vitamins, E55.9 - Vitamin D deficiency, unspecified, E66.3 - Overweight, R74.8 - Abnormal levels of other serum enzymes IRON PROFILE Today E51.9 - Thiamine deficiency, unspecified, E53.8 - Deficiency of other specified B group vitamins, E55.9 - Vitamin D deficiency, unspecified, E66.3 - Overweight, R74.8 - Abnormal levels of other serum enzymes Complete Blood Count Auto Diff Today E51.9 - Thiamine deficiency, unspecified, E53.8 - Deficiency of other specified B group vitamins, E55.9 - Vitamin D deficiency, unspecified, E66.3 - Overweight, R74.8 - Abnormal levels of other serum enzymes Vitamin B12 and Folate Today E51.9 - Thiamine deficiency, unspecified, E53.8 - Deficiency of other specified B group vitamins, E55.9 - Vitamin D deficiency, unspecified, E66.3 - Overweight, R74.8 - Abnormal levels of other serum enzymes Zinc Today E51.9 - Thiamine deficiency, unspecified, E53.8 - Deficiency of other specified B group vitamins, E55.9 - Vitamin D deficiency, unspecified, E66.3 - Overweight, R74.8 - Abnormal levels of other serum enzymes Vitamin A Today E51.9 - Thiamine deficiency, unspecified, E53.8 - Deficiency of other specified B group vitamins, E55.9 - Vitamin D deficiency, unspecified, E66.3 - Overweight, R74.8 - Abnormal levels of other serum enzymes C Reactive Protein Today E51.9 - Thiamine deficiency, unspecified, E53.8 - Deficiency of other specified B group vitamins, E55.9 - Vitamin D deficiency, unspecified, E66.3 - Overweight, R74.8 - Abnormal levels of other serum enzymes Ferritin Today E51.9 - Thiamine deficiency, unspecified, E53.8 - Deficiency of other specified B group vitamins, E55.9 - Vitamin D deficiency, unspecified, E66.3 - Overweight, R74.8 - Abnormal levels of other serum enzymes PTHI Today E51.9 - Thiamine deficiency, unspecified, E53.8 - Deficiency of other specified B group vitamins, E55.9 - Vitamin D deficiency, unspecified, E66.3 - Overweight, R74.8 - Abnormal levels of other serum enzymes TSH reflex Free T4 Today E51.9 - Thiamine deficiency, unspecified, E53.8 - Deficiency of other specified B group vitamins, E55.9 - Vitamin D deficiency, unspecified, E66.3 - Overweight, R74.8 - Abnormal levels of other serum enzymes Vitamin D 25-OH Total Today E51.9 - Thiamine deficiency, unspecified, E53.8 - Deficiency of other specified B group vitamins, E55.9 - Vitamin D deficiency, unspecified, E66.3 - Overweight, R74.8 - Abnormal levels of other serum enzymes Hemoglobin A1c Today E51.9 - Thiamine deficiency, unspecified, E53.8 - Deficiency of other specified B group vitamins, E55.9 - Vitamin D deficiency, unspecified, E66.3 - Overweight, R74.8 - Abnormal levels of other serum enzymes Basic Metabolic Panel Today E51.9 - Thiamine deficiency, unspecified, E53.8 - Deficiency of other specified B group vitamins, E55.9 - Vitamin D deficiency, unspecified, E66.3 - Overweight, R74.8 - Abnormal levels of other serum enzymes Lipid Panel Today E51.9 - Thiamine deficiency, unspecified, E53.8 - Deficiency of other specified B group vitamins, E55.9 - Vitamin D deficiency, unspecified, E66.3 - Overweight, R74.8 - Abnormal levels of other serum enzymes Vitamin B1 Today E51.9 - Thiamine deficiency, unspecified, E53.8 - Deficiency of other specified B group vitamins, E55.9 - Vitamin D deficiency, unspecified, E66.3 - Overweight, R74.8 - Abnormal levels of other serum enzymes Coding Level of Care Code Est Pt Level 4 (43466) Diagnoses Overweight (BMI 25.0-29.9) E66.3 Time Spent (min) 40
[2023-05-15 08:25] VITALS: BP 115/56; PULSE 59; TEMP 36.2; O2SAT 98; BMI 29.1
== END 2023-05-15 08:50 | disposition home or self-care (01) ==
PROVIDERS: PCP Internal Medicine; Visit Provider Physician Assistant Surgical
DX: E66.3 Overweight (principal)
CPT/HCPCS: 99214

== ENCOUNTER 2023-05-15 08:17 | Outpatient (REF) | payer OTHER, SELFPAY ==
[2023-05-17 09:39] LABS: Calcium (PTHI) 9.5 mg/dL (8.6-10.2); PTHI 35 pg/mL (16-77)
[2023-05-18 18:18] LABS: Zinc 65 mcg/dL (60-130)
[2023-05-18 18:43] LABS: Vitamin A 41 mcg/dL (38-98)
[2023-05-20 12:07] LABS: Vitamin B1 9 nmol/L (8-30)
== END 2023-05-15 08:18 | disposition home or self-care (01) ==
LOC: HO.LAB 08:17
PROVIDERS: PCP Internal Medicine; Visit Provider Physician Assistant Surgical
DX: E66.3 Overweight (principal); E51.9 Thiamine deficiency, unspecified; E53.8 Deficiency of other specified B group vitamins; E55.9 Vitamin D deficiency, unspecified; R74.8 Abnormal levels of other serum enzymes
CPT/HCPCS: 36415; 80048; 80061; 82306; 82607; 82728; 82746; 83036; 83525; 83540; 83970; 84425; 84443; 84590; 84630; 85025; 86140; 99212

== ENCOUNTER 2023-09-05 08:42 | Outpatient (AMB) | payer OTHER, SELFPAY ==
[2023-09-05 08:17] VITALS: BMI 29.0
--- NOTE | 2023-09-05 08:17 | MHC.OFFVISWM ---
Intake VS Expanded 09/05/23 08:17 Height 5 ft 7 in Weight 185 lb 3.2 oz BMI 29.0 Body Fat % 33.6 Body Fat Mass 62.2 Fat Free Mass 123 Visceral Fat Rating 11 Body Water % 45.6 Body Water Mass 84.4 Muscle Mass/Score 115.6 Basal Metabolic Rate/Score 1,579 Intake Visit Reasons: (TV) PO LSG 11/23/22 Animal Rescuer Required: No Allergies No Known Allergies [No Known Allergies*] Allergy (Verified 05/15/23 08:23) Medication List - Last Reconciled 09/05/23 by TYREE Cifuentes bisacodyl (Dulcolax (bisacodyl)) 10 mg [place] DAILY PRN sennosides (Senna Lax) 17.2 mg (2 x 8.6 mg) PO BEDTIME PRN HPI HPI Comments History of Present Illness Details This?a?22?yo female who is s/p LSG without hiatal hernia repair on?11/23/[address] Zarate. Presents for 9 month post op visit. Weight today is 185.2 pounds, with a BMI of 29..? There has been a 72.6 pound weight loss,(initial weight 257.8 pounds) since starting the program on 10/11/22 reflecting a 28.1% total body weight loss and a weight loss of 53.3 pounds since surgery (operative weight 238.5 pounds) reflecting a 22.3% TBWL since surgery.? No complaints of nausea, emesis, abdominal pain or reflux. Reports infrequent but normal bowel movements every 5 days and complaining of constipation. No complaints of pain. Taking bariatric fusion MVI and Dequan+D States she has had a enmanuel last few months with life stresses. She fell off track and neglecting herself. Started new meal plan last week per Dr Coelho. Present meal plan includes: Orgain 1 scoops with 8 oz of almond milk, 8-10 am 11 am 6 strawberries, or pear/apple 1-3 zp bar 4-6 another shake 7pm meal 5 forks protein and 5 forks veg. Drinking 40 oz water daily ? Exercise routine includes: elliptical/treadmill 4-5 days per week, 500 or 400 calories per session [facility] Medical History BMI 37.0-37.9, adult BMI 38.0-38.9,adult Nephrolithiasis PCOS (polycystic ovarian syndrome) GERD (gastroesophageal reflux disease) Morbid obesity Anxiety and depression Morbid obesity with BMI of 40.0-44.9, adult Folliculitis Fracture of distal end of right fibula Lumbago without sciatica History of irregular menstrual bleeding Surgical History History of root canal procedure Hx of wisdom tooth extraction S/P ORIF (open reduction internal fixation) fracture Family History Mother Asthma Diabetes mellitus Maternal Grandmother Diabetes mellitus Pancreatic cancer Father No problems noted. Sister PCOS (polycystic ovarian syndrome) Sister No problems noted. Paternal Uncle No problems noted. Maternal Uncle Mental health disorder Social History Household Members: Family Household Members Other:: Parents Housing: Apartment Are you a primary hospice care transitions coordinator to a significant other at home: No Do you presently have visiting nurse or other home services: No Alcohol intake: current Alcohol intake frequency: holidays/special occasions only Patient Tobacco Use Status: Never used Tobacco e-Cigarette/Vaping Use: Never Used service: No Current occupational status: employed Cognitive needs: No Hearing needs: No Vision needs: No Assessment & Plan Assessment & Plan (1) Overweight (BMI 25.0-29.9): Code(s): E66.3 - Overweight Plan: Patient was recently in touch with Dr. Zarate and was provided a new meal plan which she started approximately 1 week ago. She is satisfied with the meal plan and wants to continue. We will have her return to the office in approximately 3 weeks. Regarding her stress level, discussed incorporating yoga, home videos, 1-2 times per week for 10-15 minutes per session as she reports difficulty concentrating, with the ultimate goal of reaching 30 minutes per session. She likes that idea and will try to incorporate it. Telehealth Telehealth Location of provider rendering services: practice address Location of patient: address on file Patient Identification confirmed using: Name, : Yes Telehealth method: voice only Patient verbally consented to treatment: Yes Patient verbally consented to billing insurance company: Yes Patient informed of any privacy concerns related to visit: Yes Minutes spent on Phone/Video with Pt.: 13 Coding Level of Care Code Tele Est Pt Level 3 (32817) Diagnoses Overweight (BMI 25.0-29.9) E66.3 Time Spent (min) 20
== END 2023-09-05 08:44 | disposition home or self-care (01) ==
LOC: HO.HBS 08:42
PROVIDERS: PCP Internal Medicine; Visit Provider Physician Assistant Surgical
DX: E66.3 Overweight (principal); Z68.29 Body mass index [BMI] 29.0-29.9, adult; Z90.3 Acquired absence of stomach [part of]; Z98.84 Bariatric surgery status
CPT/HCPCS: 99213

== ENCOUNTER → 2023-09-05 08:42 | Outpatient (BNVA) | payer OTHER, SELFPAY | PROVIDERS: PCP Internal Medicine; Visit Provider Physician Assistant Surgical ==

== ENCOUNTER 2023-09-28 10:38 | Outpatient (AMB) | payer OTHER, SELFPAY ==
--- NOTE | 2023-09-28 10:25 | MHC.OFFVISWM ---
Intake VS Expanded 09/28/23 10:26 Height 5 ft 7 in Weight 182 lb 9.6 oz BMI 28.6 Body Fat % 33 Body Fat Mass 60.2 Fat Free Mass 122.4 Visceral Fat Rating 11 Body Water % 46 Body Water Mass 83.9 Muscle Mass/Score 115 Basal Metabolic Rate/Score 1,565 Intake Visit Reasons: (TV) PO LSG 11/23/22 Solar Site Assessment Specialist Required: No Allergies No Known Allergies [No Known Allergies*] Allergy (Verified 05/15/23 08:23) Medication List - Last Reconciled 09/28/23 by TYREE Cifuentes bisacodyl (Dulcolax (bisacodyl)) 10 mg [place] DAILY PRN sennosides (Senna Lax) 17.2 mg (2 x 8.6 mg) PO BEDTIME PRN HPI HPI Comments History of Present Illness Details This?a?23yo female who is s/p LSG without hiatal hernia repair on?11/23/[address] Zarate. Presents for 10 month post op visit. Weight today is 182.6 pounds, with a BMI of 28.7.? There has been a 75.2 pound weight loss,(initial weight 257.8 pounds) since starting the program on 10/11/22 reflecting a 29.6% total body weight loss and a weight loss of 55.9 pounds since surgery (operative weight 238.5 pounds) reflecting a 23.4% TBWL since surgery.? No complaints of nausea, emesis, abdominal pain or reflux. Reports she is moving bowels better with the increase in water intake.. No complaints of pain. Taking bariatric fusion MVI and Dequan+D States she over the last month, her stress has improved. She has been following the meal plan. She is very satisfied with her current meal plan and exercise plan and has no complaints. Present meal plan includes: Orgain 1 scoops with 8 oz of almond milk, 8-10 am 11 am 6 strawberries, or pear/apple 1-3 zp bar 4-6 another shake 7pm meal 5 forks protein and 5 forks veg. Drinking 80 oz water daily ? Exercise routine includes: gym elliptical/treadmill 4-5 days per week, 500 or 400 calories per session PFSH Medical History BMI 37.0-37.9, adult BMI 38.0-38.9,adult Nephrolithiasis PCOS (polycystic ovarian syndrome) GERD (gastroesophageal reflux disease) Morbid obesity Anxiety and depression Morbid obesity with BMI of 40.0-44.9, adult Folliculitis Fracture of distal end of right fibula Lumbago without sciatica History of irregular menstrual bleeding Surgical History History of root canal procedure Hx of wisdom tooth extraction S/P ORIF (open reduction internal fixation) fracture Family History Mother Asthma Diabetes mellitus Maternal Grandmother Diabetes mellitus Pancreatic cancer Father No problems noted. Sister PCOS (polycystic ovarian syndrome) Sister No problems noted. Paternal Uncle No problems noted. Maternal Uncle Mental health disorder Social History Household Members: Family Household Members Other:: Parents Housing: Apartment Are you a primary chronic care nurse to a significant other at home: No Do you presently have visiting nurse or other home services: No Alcohol intake: current Alcohol intake frequency: holidays/special occasions only Patient Tobacco Use Status: Never used Tobacco e-Cigarette/Vaping Use: Never Used service: No Current occupational status: employed Cognitive needs: No Hearing needs: No Vision needs: No Review of Systems Const All systems reviewed & are unremarkable except as noted in HPI and below Assessment & Plan Assessment & Plan (1) Status post sleeve gastrectomy: Comment: 11/2022 Code(s): Z90.3 - Acquired absence of stomach [part of] Plan: Patient has begun to make progress again. She is satisfied with the current meal plan which will continue. She does state she wants to start lifting weights and was encouraged to do so as she states that she has the knowledge on proper lifting technique. Suggested weightlifting then cardio at the gym. We will have her return for another phone appointment in approximately 1 month and an in-person appointment for her 1 year follow-up in November. She was encouraged to continue to text weekly weight measurements and if any questions or concerns. Telehealth Telehealth Location of provider rendering services: practice address Location of patient: address on file Patient Identification confirmed using: Name, : Yes Telehealth method: voice only Patient verbally consented to treatment: Yes Patient verbally consented to billing insurance company: Yes Patient informed of any privacy concerns related to visit: Yes Minutes spent on Phone/Video with Pt.: 12 Coding Level of Care Code Tele Est Pt Level 3 (85602) Diagnoses Status post sleeve gastrectomy Z90.3 Time Spent (min) 15
[2023-09-28 10:26] VITALS: BMI 28.6
== END 2023-09-28 10:43 | disposition home or self-care (01) ==
LOC: HO.HBS 10:38
PROVIDERS: PCP Internal Medicine; Visit Provider Physician Assistant Surgical
DX: E66.3 Overweight (principal); Z68.28 Body mass index [BMI] 28.0-28.9, adult; Z90.3 Acquired absence of stomach [part of]; Z98.84 Bariatric surgery status
CPT/HCPCS: 99212

== ENCOUNTER → 2023-09-28 10:38 | Outpatient (BNVA) | payer OTHER, SELFPAY | PROVIDERS: PCP Internal Medicine; Visit Provider Physician Assistant Surgical ==

== ENCOUNTER 2023-10-29 10:24 | Outpatient (AMB) | payer OTHER, SELFPAY ==
[2023-10-29 09:14] VITALS: BMI 28.4
--- NOTE | 2023-10-29 09:14 | A.OFFVIS_ITS ---
Intake VS Expanded 10/29/23 09:14 Height 5 ft 7 in Weight 181 lb 6.4 oz BMI 28.4 Body Fat % 32.7 Body Fat Mass 59.4 Fat Free Mass 122.2 Visceral Fat Rating 11 Body Water % 46.2 Body Water Mass 83.8 Muscle Mass/Score 114.8 Basal Metabolic Rate/Score 1,554 Intake Visit Reasons: (TV) PO LSG 11/23/22 Weeder Thinner Required: No Allergies No Known Allergies [No Known Allergies*] Allergy (Verified 05/15/23 08:23) Medication List - Last Reconciled 10/29/23 by TYREE Cifuentes bisacodyl (Dulcolax (bisacodyl)) 10 mg TN DAILY PRN sennosides (Senna Lax) 17.2 mg (2 x 8.6 mg) PO BEDTIME PRN HPI HPI Comments History of Present Illness Details This?a?23yo female who is s/p LSG without hiatal hernia repair on?11/23/[address] Zarate. Presents for 11 month post op visit. Weight today is 181.4 pounds, with a BMI of 28.4.? There has been a 76.4 pound weight loss,(initial weight 257.8 pounds) since starting the program on 10/11/22 reflecting a 29.6% total body weight loss and a weight loss of 57.1 pounds since surgery (operative weight 238.5 pounds) reflecting a 23.9% TBWL since surgery.? No complaints of nausea, emesis, abdominal pain or reflux. Reports she is moving bowels better with the increase in water intake.. No complaints of pain. Taking bariatric fusion MVI and Dequan+D States she over the last month, her stress has improved. She has been following the meal plan. She is very satisfied with her current meal plan and exercise plan and has no complaints. Started a new job, working w [employer]. She states she would like to change her meal plan to have eggs as an option in the morning. Present meal plan includes: Orgain 1 scoops with 8 oz of almond milk, 8-10 am 11 am 6 strawberries, or pear/apple 1-3 zp bar 4-6 another shake 7pm meal 5 forks protein and 5 forks veg . Drinking 64 oz water daily ? Exercise routine includes: gym elliptical/treadmill 3-4 days per week, 300-400 calories per session [facility]LY [facility] Medical History BMI 37.0-37.9, adult BMI 38.0-38.9,adult Nephrolithiasis PCOS (polycystic ovarian syndrome) GERD (gastroesophageal reflux disease) Morbid obesity Anxiety and depression Morbid obesity with BMI of 40.0-44.9, adult Folliculitis Fracture of distal end of right fibula Lumbago without sciatica History of irregular menstrual bleeding Surgical History History of root canal procedure Hx of wisdom tooth extraction S/P ORIF (open reduction internal fixation) fracture Family History (Reviewed 10/29/23 @ 09: by TYREE Cifuentes) Mother Asthma Diabetes mellitus Maternal Grandmother Diabetes mellitus Pancreatic cancer Father No problems noted. Sister PCOS (polycystic ovarian syndrome) Sister No problems noted. Paternal Uncle No problems noted. Maternal Uncle Mental health disorder Social History Household Members: Family Household Members Other:: Parents Housing: Apartment Are you a primary career services manager to a significant other at home: No Do you presently have visiting nurse or other home services: No Alcohol intake: current Alcohol intake frequency: holidays/special occasions only Patient Tobacco Use Status: Never used Tobacco e-Cigarette/Vaping Use: Never Used service: No Current occupational status: employed Cognitive needs: No Hearing needs: No Vision needs: No Assessment & Plan Assessment & Plan (1) Overweight (BMI 25.0-29.9): Code(s): E66.3 - Overweight Plan: Patient is making slow but steady progress. She states that she would like to change her meal plans slightly to incorporate eggs in the morning. We will do so. Orgain 1 scoops with 8 oz of almond milk, 8-10 am or 2 eggs with veggies 11 am 6 strawberries, or pear/apple 1-3 zp bar 4-6 another shake 7pm meal 5 forks protein and 5 forks veg. Discussed increasing time at the gym to 5 days per week or more with an ultimate goal of 2000 calories burn per week. She states that she will try to incorporate this as she is just started a new job. We will have her return to the office for her 1 year follow-up in November. Telehealth Telehealth Location of provider rendering services: practice address Location of patient: other Patient Identification confirmed using: Name, : Yes Telehealth method: voice only Patient verbally consented to treatment: Yes Patient verbally consented to billing insurance company: Yes Patient informed of any privacy concerns related to visit: Yes Minutes spent on Phone/Video with Pt.: 10 Coding Level of Care Code Tele Est Pt Level 3 (89149) Diagnoses Overweight (BMI 25.0-29.9) E66.3 Time Spent (min) 18
== END 2023-10-29 10:29 | disposition home or self-care (01) ==
LOC: HO.HBS 10:24
PROVIDERS: PCP Internal Medicine; Visit Provider Physician Assistant Surgical
DX: E66.3 Overweight (principal)
CPT/HCPCS: 99213

== ENCOUNTER → 2023-10-29 10:24 | Outpatient (BNVA) | payer OTHER, SELFPAY | PROVIDERS: PCP Internal Medicine; Visit Provider Physician Assistant Surgical | DX: E66.3 Overweight (principal) ==

== ENCOUNTER 2023-12-06 10:31 | Outpatient (AMB) | payer OTHER, SELFPAY ==
[2023-12-06 11:24] VITALS: BP 92/60; PULSE 56; O2SAT 98; BMI 29.0
--- NOTE | 2023-12-06 11:24 | A.OFFPC_ITS ---
<Statement entered by Dora Howard MD - 01/03/25 01:47> This note has been administratively?closed. Vital Signs 12/06/23 11:24 Height 5 ft 7 in Weight 185 lb BMI 29.0 BP 92/60 Blood Pressure Location Lt brachial Position Sitting Pulse 56 Pulse Source Pulse Oximeter Pulse Oximetry (%) 98 Oxygen Delivery Method Room Air Intake Visit Reasons: referral to psych Intake Note: Pt is here today to discuss referral to psych Allergies No Known Allergies [No Known Allergies*] Allergy (Verified 12/06/23 11:26) Tobacco use date assessed: 12/06/23 Dental Screening Dental Screen Date: 12/06/23 Did you have a dental visit in the last 12 months?: Yes Did you have a dental problem in the last 6 months where you did not have access to dental care?: No Was dental information given to patient?: Patient has dentist [facility] Medical History BMI 37.0-37.9, adult BMI 38.0-38.9,adult Nephrolithiasis PCOS (polycystic ovarian syndrome) GERD (gastroesophageal reflux disease) Morbid obesity Anxiety and depression Morbid obesity with BMI of 40.0-44.9, adult Folliculitis Fracture of distal end of right fibula Lumbago without sciatica History of irregular menstrual bleeding Surgical History History of root canal procedure Hx of wisdom tooth extraction S/P ORIF (open reduction internal fixation) fracture Family History Mother Asthma Diabetes mellitus Maternal Grandmother Diabetes mellitus Pancreatic cancer Father No problems noted. Sister PCOS (polycystic ovarian syndrome) Sister No problems noted. Paternal Uncle No problems noted. Maternal Uncle Mental health disorder Social History Household Members: Family Household Members Other:: Parents Housing: Apartment Are you a primary patient care manager to a significant other at home: No Do you presently have visiting nurse or other home services: No Alcohol intake: current Alcohol intake frequency: holidays/special occasions only Patient Tobacco Use Status: Never used Tobacco e-Cigarette/Vaping Use: Never Used service: No Current occupational status: employed Cognitive needs: No Hearing needs: No Vision needs: No Questionnaire PHQ-9 Over the last 2 weeks, how often have you been bothered by any of the following problems? 1. Little interest or pleasure in doing things: not at all 2. Feeling down, depressed, or hopeless: several days 3. Trouble falling or staying asleep, or sleeping too much: not at all 4. Feeling tired or having little energy: several days 5. Poor appetite or overeating: not at all 6. Feeling bad about yourself - or that you are a failure or have let yourself or your family down: several days 7. Trouble concentrating on things, such as reading the newspaper or watching television: not at all 8. Moving or speaking so slowly that other people could have noticed. Or the opposite - being so fidgety or restless that you have been moving around a lot more than usual: not at all 9. Thoughts that you would be better off or of hurting yourself in some way: not at all Total score: 3 Depression Screening Interpretation: Positive (Referred to [facility] our mental health coordinator for assistance also getting evaluated for possible ADD) Depression Screening Done: Yes 48733 - PHQ-9 Billing: Yes Source: Developed by Drs. Brien Hahn, Hilary Mosqueda, Alejo Morris and colleagues, with an educational julisa from [employer]. Thrive Questionnaire Date Thrive assessed: 12/06/23 AUDIT C Alcohol Use Questionnaire (AUDIT-C) 1. How often do you have a drink containing alcohol?: Monthly or less 2. How many drinks containing alcohol do you have on a typical day when you are drinking?: 1 or 2 3. How often do you have six or more drinks on one occasion?: Never Total Score: 1 SHONDA-7 AMB Questionnaire SHONDA-7 Date SHONDA - 7 assessed: 12/06/23 Feeling nervous, anxious, or on edge: 1 = Several days Not being able to stop or control worryin = More than half the days Worrying too much about different things: 2 = More than half the days Trouble relaxin = Not at all Being so restless that it is hard to sit still: 0 = Not at all Becoming easily annoyed or irritable: 1 = Several days Feeling afraid as if something awful might happen: 0 = Not at all Total SHONDA-7 score (0-4 normal; 5-9 mild; 10-14 moderate; 15-21 severe): 6 Source: Developed by Drs. Brien Hahn, Hilary Mosqueda, Alejo Morris and colleagues, with an educational julisa from [employer]. SHONDA-7 Assessment Billing SHONDA-7 Assessment Tool: SHONDA-7 Assessment 16160 Physical exam (Primary Care) Vital Signs: Last Vital Signs Pulse 56 12/06/23 11:24 BP 92/60 12/06/23 11:24 Pulse Ox 98 12/06/23 11:24 Oxygen Delivery Method Room Air 12/06/23 11:24 BMI result Body Mass Index 29.0 Tobacco/Smoking Status: Tobacco use Status Tobacco use date assessed 12/06/23 12/06/23 11:28 Patient Tobacco Use Status Never used Tobacco 12/06/23 11:28 e-Cigarette/Vaping Use Never Used 12/06/23 11:28 PHQ-9: PHQ-9 Score PHQ-9: Total score 3 01/02/25 09:58 Depression Screening Interpretation: Positive (Referred to [facility] our mental health coordinator for assistance also getting evaluated for possible ADD) Thrive Assessment: Date of Thrive Assessment Date Thrive assessed 12/06/23 12/06/23 12:00 Advance Care Planning discussion: Completed/Scanned Date of discussion: 12/06/23 Who was present: Patient Forms completed: Health Care Proxy Time spent: 16-45 minutes Actual minutes spent: 16 Coding Level of Care Code Admin Sign Off/No Billing Diagnoses Anxiety and depression F41.9; F32.A Additional Codes SHONDA-7 Assessment Billing - SHONDA-7 Assessment Tool: SHONDA-7 Assessment 53411 ([id number]) Vital Signs *Quality* - Advance Care Planning discussion: Completed/Scanned ([id number]) Vital Signs *Quality* - Time spent: 16-45 minutes ([id number])
== END 2023-12-06 16:28 | disposition home or self-care (01) ==
PROVIDERS: PCP Internal Medicine; Visit Provider Internal Medicine
DX: F41.9 Anxiety disorder, unspecified (principal); F32.A Depression, unspecified; Z00.00 Encounter for general adult medical examination without abnormal findings
CPT/HCPCS: 99499

== ENCOUNTER 2024-11-20 13:20 | Outpatient (AMB) | payer OTHER, SELFPAY ==
--- NOTE | 2024-11-20 13:23 | A.OFFVIS_ITS ---
VS Expanded 11/20/24 13:31 BP 124/58 L Blood Pressure Location Rt brachial Blood Pressure Position Sitting Pulse 66 Pulse Source Pulse Oximeter Temp 97.9 F Temperature Source Temporal Artery Scan Pulse Oximetry 95 Oxygen Delivery Method Room Air Height 5 ft 7 in Weight 181 lb 6.4 oz BMI 28.4 Body Fat % 34.4 Body Fat Mass 62.4 Fat Free Mass 118.8 Visceral Fat Rating 5.0 Body Water % 47.2 Body Water Mass 85.6 Muscle Mass/Score 112.8 Basal Metabolic Rate/Score 1,655 Intake Visit Reasons: (OV) PO LSG 11/23/22 SEE Comments Allergies No Known Allergies [No Known Allergies*] Allergy (Verified 12/06/23 11:26) Medication List - Last Reconciled 11/20/24 by TYREE Butt buspirone 5 mg PO TID HPI Comments Details: This?is a?24?yo female who is s/p LSG 11/23/2022. Presents for 2 year post op visit. Weight stable since last OV 1 year ago.? No complaints of nausea, emesis, abdominal pain, or constipation. Reports some reflux when she eats certain foods- acidic. Getting next month Present meal plan includes: given at last OV Orgain 1 scoops with 8 oz of almond milk, 8-10 am or 2 eggs with veggies 11 am 6 strawberries, or pear/apple 1-3 zp bar 4-6 another shake 7pm meal 5 forks protein and 5 forks veg. Exercise routine includes: elliptical/treadmill 3-4x/week previously, wants to restart this Pt reports excess skin of upper arms which has become bothersome. Pt is experiencing issues of skin rubbing together, hives/rashes, ingrown hairs and boils that are painful. Tries deoderant and baby powder but this does not adequately protect the area. Cannot wear sleeveless shirts due to skin rubbing together at the upper arm, this can be difficult and more uncomfortable in summertime when the weather is hotter. Sometimes the skin feels heavy and uncomf ortable including when she lifts her arms to reach overhead. Exercise is also more difficult due to the excess skin rubbing against the body and getting in the way during movement. [facility] Medical History BMI 37.0-37.9, adult BMI 38.0-38.9,adult Nephrolithiasis PCOS (polycystic ovarian syndrome) GERD (gastroesophageal reflux disease) Morbid obesity Anxiety and depression Morbid obesity with BMI of 40.0-44.9, adult Folliculitis Fracture of distal end of right fibula Lumbago without sciatica History of irregular menstrual bleeding Surgical History History of root canal procedure Hx of wisdom tooth extraction S/P ORIF (open reduction internal fixation) fracture Family History Mother Asthma Diabetes mellitus Maternal Grandmother Diabetes mellitus Pancreatic cancer Father No problems noted. Sister PCOS (polycystic ovarian syndrome) Sister No problems noted. Paternal Uncle No problems noted. Maternal Uncle Mental health disorder Social History Household Members: Family Household Members Other:: Parents Housing: Apartment Are you a primary foster care therapist to a significant other at home: No Do you presently have visiting nurse or other home services: No Alcohol intake: current Alcohol intake frequency: holidays/special occasions only Patient Tobacco Use Status: Never used Tobacco e-Cigarette/Vaping Use: Never Used service: No Current occupational status: employed Cognitive needs: No Hearing needs: No Vision needs: No Physical Exam Vital Signs: Last Vital Signs Temp 97.9 F 11/20/24 13:31 Pulse 66 11/20/24 13:31 BP 124/58 L 11/20/24 13:31 Pulse Ox 95 11/20/24 13:31 Oxygen Delivery Method Room Air 11/20/24 13:31 BMI result Body Mass Index 28.4 Const General: cooperative, comfortable and no acute distress Orientation/consciousness: patient oriented x3 Skin Other: excess skin of bilateral upper arms with maximum length from triceps 7cm on right and 6cm on left Neuro General: patient oriented x3 Assessment & Plan Assessment & Plan (1) Overweight (BMI 25.0-29.9): Code(s): E66.3 - Overweight Category: Medical (2) Status post sleeve gastrectomy: Comment: 11/2022 Code(s): Z90.3 - Acquired absence of stomach [part of] Category: Surgical (3) Excess skin: Code(s): L98.7 - Excessive and redundant skin and subcutaneous tissue Category: Medical Plan Pt is experiencing issues of excess skin of upper arms, including persistent chafing/rashes in skin folds, due to excess moisture/sweat as well as limitation of clothing she can wear and limitation of activities of daily living due to pain/discomfort. Will treat rashes with fluconazole. [employer] unique info given to help with weight loss for BMI <27. Pt also plans to restart exercise. Gave my phone # to reach out with any questions. Discussed expected postop course for brachioplasty. RTC in January. Medications: New fluconazole 150 mg PO Q3D 2 tabs 0RF
[2024-11-20 13:31] VITALS: BP 124/58; PULSE 66; TEMP 36.6; O2SAT 95; BMI 28.4
== END 2024-11-20 14:18 | disposition home or self-care (01) ==
LOC: HO.HBS 13:21
PROVIDERS: PCP Internal Medicine; Visit Provider Physician Assistant Surgical
DX: E66.3 Overweight (principal); Z68.28 Body mass index [BMI] 28.0-28.9, adult; Z90.3 Acquired absence of stomach [part of]; L98.7 Excessive and redundant skin and subcutaneous tissue; Z98.84 Bariatric surgery status
CPT/HCPCS: 99214

== ENCOUNTER → 2024-11-20 13:20 | Outpatient (BNVA) | payer OTHER, SELFPAY | PROVIDERS: PCP Internal Medicine; Visit Provider Physician Assistant Surgical ==

== ENCOUNTER 2025-01-12 12:12 | Outpatient (AMB) | payer OTHER, SELFPAY ==
--- NOTE | 2025-01-12 12:33 | MHC.OFFVISWM ---
VS Expanded 01/12/25 12:35 Height 5 ft 7 in Weight 185 lb BMI 29.0 Intake Visit Reasons: TV PO LSG 11/23/22 Allergies No Known Allergies [No Known Allergies*] Allergy (Verified 12/06/23 11:26) Medication List - Last Reconciled 01/12/25 by TYREE Butt buspirone 5 mg PO TID clotrimazole 1% 1 appl topical BID fluconazole 200 mg PO .weekly HPI Comments Details: This?is a?24?yo F who is s/p LSG 11/23/2022. Presents for 2 year 2 month post op visit. Weight at last visit on 11/20/2024 was 181.4 pounds with a BMI of 28.4, weight today is 185 pounds, representing a 3.6 pound weight loss with a BMI today of 29.? No complaints of nausea, emesis, abdominal pain or reflux, or constipation. Got last month, feels less stressed this month. She was less consistent with meal plan and exercise which resulted in her weight gain. Present meal plan includes: Orgain 1 scoops with 8 oz of almond milk, 8-10 am or 2 eggs with veggies 11 am 6 strawberries, or pear/apple 1-3 zp bar 4-6 another shake 7pm meal 5 forks protein and 5 forks veg - she did not download [employer] unique after last visit, plans to do so now Exercise routine includes: elliptical/treadmill 3-4x/week previously, wants to restart this plans to restart walking Pt reports excess skin of upper arms which has become bothersome. Pt is experiencing issues of skin rubbing together, hives/rashes, ingrown hairs and boils that are painful. Tries deoderant and baby powder but this does not adequately protect the area. Cannot wear sleeveless shirts due to skin rubbing together at the upper arm, this can be difficult and more uncomfortable in summertime when the weather is hotter. Sometimes the skin feels heavy and uncomfortable including when she lifts her arms to reach overhead. Exercise is also more difficult due to the excess skin rubbing against the body and getting in the way during movement. She tried 2 rounds of PO fluconazole but her skin issues have been refractory to 2 full courses of systemic treatment. She also has issues with excess skin of thighs. [facility] Medical History BMI 37.0-37.9, adult BMI 38.0-38.9,adult Nephrolithiasis PCOS (polycystic ovarian syndrome) GERD (gastroesophageal reflux disease) Morbid obesity Anxiety and depression Morbid obesity with BMI of 40.0-44.9, adult Folliculitis Fracture of distal end of right fibula Lumbago without sciatica History of irregular menstrual bleeding Surgical History History of root canal procedure Hx of wisdom tooth extraction S/P ORIF (open reduction internal fixation) fracture Family History Mother Asthma Diabetes mellitus Maternal Grandmother Diabetes mellitus Pancreatic cancer Father No problems noted. Sister PCOS (polycystic ovarian syndrome) Sister No problems noted. Paternal Uncle No problems noted. Maternal Uncle Mental health disorder Social History Household Members: Family Household Members Other:: Parents Housing: Apartment Are you a primary home care administrator to a significant other at home: No Do you presently have visiting nurse or other home services: No Alcohol intake: current Alcohol intake frequency: holidays/special occasions only Patient Tobacco Use Status: Never used Tobacco e-Cigarette/Vaping Use: Never Used service: No Current occupational status: employed Cognitive needs: No Hearing needs: No Vision needs: No Telehealth Telehealth Telehealth Platform: Telephone Location of provider rendering services: other Location of patient: address on file Patient Identification confirmed using: Name, : Yes Telehealth method: voice only Patient verbally consented to treatment: Yes Patient verbally consented to billing insurance company: Yes Patient informed of any privacy concerns related to visit: Yes Minutes spent on Phone/Video with Pt.: 16 Assessment & Plan Assessment & Plan (1) Excess skin: Code(s): L98.7 - Excessive and redundant skin and subcutaneous tissue Category: Medical (2) Overweight (BMI 25.0-29.9): Code(s): E66.3 - Overweight Category: Medical (3) Status post sleeve gastrectomy: Comment: 11/2022 Code(s): Z90.3 - Acquired absence of stomach [part of] Category: Medical Plan Goal weight 172-173 prior to skin removal surgery. Pt will download [employer] unique and follow meal plan. Target of 2000 calories per week burned with exercise. She has excess skin of upper arms, which has resulted in ongoing issues of skin integrity/chafing/pain/local infections, refractory to fastidious personal hygiene/cleaning and 2 courses of PO antimicrobials to attempt to treat. In addition her activities of daily living are compromised due to the excess skin. Labs ordered. RTC 2-3 months, for in office visit for physical exam and photos of excess skin. Orders: Orders Complete Blood Count Auto Diff Today E66.3 - Overweight, L98.7 - Excessive and redundant skin and subcutaneous tissue, Z90.3 - Acquired absence of stomach [part of] Lipid Panel Today E66.3 - Overweight, L98.7 - Excessive and redundant skin and subcutaneous tissue, Z90.3 - Acquired absence of stomach [part of] Vitamin B12 and Folate Today E66.3 - Overweight, L98.7 - Excessive and redundant skin and subcutaneous tissue, Z90.3 - Acquired absence of stomach [part of] Ferritin Today E66.3 - Overweight, L98.7 - Excessive and redundant skin and subcutaneous tissue, Z90.3 - Acquired absence of stomach [part of] Vitamin D 25-OH Total Today E66.3 - Overweight, L98.7 - Excessive and redundant skin and subcutaneous tissue, Z90.3 - Acquired absence of stomach [part of] Insulin Today E66.3 - Overweight, L98.7 - Excessive and redundant skin and subcutaneous tissue, Z90.3 - Acquired absence of stomach [part of] Hemoglobin A1c Today E66.3 - Overweight, L98.7 - Excessive and redundant skin and subcutaneous tissue, Z90.3 - Acquired absence of stomach [part of] IRON PROFILE Today E66.3 - Overweight, L98.7 - Excessive and redundant skin and subcutaneous tissue, Z90.3 - Acquired absence of stomach [part of] Comprehensive Met. Panel Today E66.3 - Overweight, L98.7 - Excessive and redundant skin and subcutaneous tissue, Z90.3 - Acquired absence of stomach [part of] Zinc Today E66.3 - Overweight, L98.7 - Excessive and redundant skin and subcutaneous tissue, Z90.3 - Acquired absence of stomach [part of] C Reactive Protein Today E66.3 - Overweight, L98.7 - Excessive and redundant skin and subcutaneous tissue, Z90.3 - Acquired absence of stomach [part of] Vitamin B1 Today E66.3 - Overweight, L98.7 - Excessive and redundant skin and subcutaneous tissue, Z90.3 - Acquired absence of stomach [part of] Vitamin A Today E66.3 - Overweight, L98.7 - Excessive and redundant skin and subcutaneous tissue, Z90.3 - Acquired absence of stomach [part of] TSH reflex Free T4 Today E66.3 - Overweight, L98.7 - Excessive and redundant skin and subcutaneous tissue, Z90.3 - Acquired absence of stomach [part of]
[2025-01-12 12:35] VITALS: BMI 29.0
== END 2025-01-12 12:51 | disposition home or self-care (01) ==
LOC: HO.HBS 12:12
PROVIDERS: PCP Internal Medicine; Visit Provider Physician Assistant Surgical
DX: L98.7 Excessive and redundant skin and subcutaneous tissue (principal); E66.3 Overweight; Z90.3 Acquired absence of stomach [part of]
CPT/HCPCS: 99214

== ENCOUNTER → 2025-01-12 12:12 | Outpatient (BNVA) | payer OTHER, SELFPAY | PROVIDERS: PCP Internal Medicine; Visit Provider Physician Assistant Surgical ==